=== PATIENT | female | born 1965 | race Hispanic/Latino ===

== ENCOUNTER 2016-08-31 16:55 | Inpatient (IN) | payer BC ==
[2016-08-31 18:26] VITALS: RESP 20
[2016-08-31 18:28] VITALS: BMI 57.3
[2016-08-31] MEDS ORDERED: Oxycodone/Acetaminophen 5/325 mg Tab PO PRN (20:36)
--- NOTE | 2016-08-31 20:40 | CP.PCM.HP ---
History of Present Illness - History of Present Illness History of Present Illness: 50 yo female with history of morbid obesity and low back pain since falling on her back a year ago had decompression and spinal fusion of L4-L5 on 08/26/2016 at [facility] because of herniated disc. Present on Admission - Present on Admission Any Indicators Present on Admission: No History of DVT/PE: No History of Uncontrolled Diabetes: No Urinary Catheter: No Decubitus Ulcer Present: No Review of Systems - Review of Systems All systems: reviewed and no additional remarkable complaints except (aside from those mentioned above, 12 point system review were negative by me) Past Patient History - Infectious Disease Hx of Infectious Diseases: None - Tetanus Immunizations Tetanus Immunization: Unknown - Past Social History Smoking Status: Unknown If Ever Smoked Alcohol: None Drugs: Denies - CARDIAC Hx Cardiac Disorders: No - PULMONARY Hx Respiratory Disorders: No - NEUROLOGICAL Hx Neurological Disorder: No - HEENT Hx HEENT Problems: No - RENAL Hx Chronic Kidney Disease: No - ENDOCRINE/METABOLIC Hx Diabetes Mellitus Type 2: Yes (controlled with diet) - HEMATOLOGICAL/ONCOLOGICAL Hx Blood Disorders: No - INTEGUMENTARY Hx Dermatological Problems: No - MUSCULOSKELETAL/RHEUMATOLOGICAL Hx Back Pain: Yes Hx Herniated Disk: Yes Hx Rheumatoid Arthritis: Yes Other/Comment: sciatica. left leg rediculopathy. morbidly obese - GASTROINTESTINAL Hx Gastrointestinal Disorders: No - GENITOURINARY/GYNECOLOGICAL Hx Genitourinary Disorders: No - PSYCHIATRIC Hx Psychophysiologic Disorder: No Hx Substance Use: No - SURGICAL HISTORY Hx Section: Yes Other/Comment: 08/26/16 L4-L5 laminectomy with fusion - ANESTHESIA Hx Anesthesia: Yes Hx Anesthesia Reactions: No Hx Malignant Hyperthermia: No Has any member of the family had a problem w/ anesthesia?: No Meds Allergies/Adverse Reactions: Allergies Allergy/AdvReac Type Severity Reaction Status Date / Time No Known Allergies Allergy Verified 08/31/16 18:27 Physical Exam - Constitutional Appears: No Acute Distress, Other (morbidly obese) - Head Exam Head Exam: ATRAUMATIC - Eye Exam Eye Exam: absent: Scleral icterus - ENT Exam ENT Exam: Mucous Membranes Moist - Neck Exam Neck exam: Negative for: Meningismus - Respiratory Exam Respiratory Exam: absent: Rhonchi, Wheezes, Respiratory Distress - Cardiovascular Exam Cardiovascular Exam: REGULAR RHYTHM, +S1, +S2 - GI/Abdominal Exam GI & Abdominal Exam: Soft. absent: Tenderness - Rectal Exam Rectal Exam: Deferred - Extremities Exam Extremities exam: Positive for: pedal edema - Back Exam Back exam: absent: tenderness - Neurological Exam Neurological exam: Alert, Oriented x3 - Psychiatric Exam Psychiatric exam: Normal Affect - Skin Skin Exam: Dry, Intact Results - Vital Signs Recent Vital Signs: Last Vital Signs Temp 97.7 F 08/31/16 18:23 Pulse 75 08/31/16 18:23 Resp 20 08/31/16 18:23 BP 176/64 H 08/31/16 18:23 Pulse Ox 99 08/31/16 18:23 Assessment & Plan (1) S/P spinal fusion Status: Acute Comment: admit to TCU. refer for PT and OT. pain management with Percocet 1 tab PO q 4hrs prn. venodyne boots while in bed. Decadron 2mg PO q 6hrs. Neurontin 300mg PO q 12hrs. Valium 5mg PO q 6hrs prn (2) DM2 (diabetes mellitus, type 2) Status: Chronic Comment: ronit RUIZ. HgA1C, BMP in am
[2016-09-01 07:36] LABS: BASO % 0.2 % (0.0-2.0); EOS # 0.2 K/uL (0.0-0.7); LYMPH # 1.4 K/uL (1.0-4.3); LYMPH % 22.5 % (20.0-40.0); MEAN CELL VOLUME 86.1 fl (81.0-99.0); MEAN CORPUSCULAR HEMOGLOBIN 28.2 pg (27.0-31.0); MEAN CORPUSCULAR HGB CONC 32.7 g/dL (33.0-37.0); MONO # 0.3 K/uL (0.0-0.8); MONO % 4.8 % (0.0-10.0); NEUT # 4.2 K/uL (1.8-7.0); NEUT % 69.5 % (50.0-75.0); NRBC % 0.1 % (0.0-0.0)
[2016-09-01 08:01] LABS: BLOOD UREA NITROGEN 14 mg/dl (7-17); CALCIUM 8.3 mg/dL (8.4-10.2); CARBON DIOXIDE 28 mmol/L (22-30); CHLORIDE 106 mmol/L (98-107); GFR AFRICAN-AMERICAN > 60; GLUCOSE,RANDOM 141 mg/dL (65-105); POTASSIUM 3.9 MMOL/L (3.6-5.0); SODIUM 142 mmol/l (132-148)
[2016-09-01] MEDS: Pantoprazole 40 mg EC Tab PO SCH (08:34)
[2016-09-02 07:55] LABS: BASO % 0.1 % (0.0-2.0); EOS # 0.2 K/uL (0.0-0.7); EOS % 2.8 % (0.0-4.0); HEMATOCRIT 27.7 % (34.0-47.0); LYMPH # 2.2 K/uL (1.0-4.3); LYMPH % 26.6 % (20.0-40.0); MEAN CELL VOLUME 85.8 fl (81.0-99.0); MEAN CORPUSCULAR HGB CONC 32.6 g/dL (33.0-37.0); MEAN PLATELET VOLUME 8.8 fl (7.2-11.7); MONO # 0.4 K/uL (0.0-0.8); MONO % 5.3 % (0.0-10.0); NEUT # 5.3 K/uL (1.8-7.0); NEUT % 65.2 % (50.0-75.0); NRBC % 0.1 % (0.0-0.0); WHITE BLOOD COUNT 8.1 K/uL (4.8-10.8)
[2016-09-02 08:23] LABS: ALKALINE PHOSPHATASE 77 U/L (38-126); ALT/SGPT 27 U/L (9-52); AST/SGOT 25 U/L (14-36); BILIRUBIN,TOTAL 0.4 mg/dl (0.2-1.3); BLOOD UREA NITROGEN 13 mg/dl (7-17); CALCIUM 8.3 mg/dL (8.4-10.2); CARBON DIOXIDE 29 mmol/L (22-30); CHLORIDE 105 mmol/L (98-107); GFR AFRICAN-AMERICAN > 60; GLUCOSE,RANDOM 103 mg/dL (65-105); POTASSIUM 3.6 MMOL/L (3.6-5.0); SODIUM 142 mmol/l (132-148); TOTAL PROTEIN 5.5 G/DL (6.3-8.2)
[2016-09-02] MEDS: Pantoprazole 40 mg EC Tab PO SCH (09:23)
[2016-09-02 11:51] LABS: IRON 28 ug/dL (37-170)
--- NOTE | 2016-09-02 16:04 | CP.PCM.PN ---
Subjective - Date & Time of Evaluation Date of Evaluation: 09/02/16 Time of Evaluation: 11:00 - Subjective Subjective: Pt seen and examined. Complained of having diarrhea since yesterday. Able to tolerate PT and OT. Objective - Vital Signs/Intake and Output Vital Signs (last 24 hours): Temp Pulse Resp BP Pulse Ox 97.9 F 74 20 110/55 L 99 09/02/16 08:42 09/02/16 11:43 09/02/16 08:42 09/02/16 11:43 09/02/16 11:43 - Medications Medications: Current Medications Dexamethasone (Decadron) 2 mg PO Q12 [facility] Stop: 09/02/16 21:00 Last Admin: 09/02/16 09:23 Dose: 2 mg Dexamethasone (Decadron) 1 mg PO Q12 [facility] Stop: 09/04/16 09:00 Dexamethasone (Decadron) 1 mg PO ONCE ONE Stop: 09/05/16 11:11 Dexamethasone (Decadron) 1 mg PO ONCE ONE Stop: 09/06/16 11:12 Diazepam (Valium) 5 mg PO Q6 PRN PRN Reason: Muscle spasm Last Admin: 09/02/16 02:17 Dose: 5 mg Gabapentin (Neurontin) 300 mg PO Q12 [facility] Last Admin: 09/02/16 09:23 Dose: 300 mg Hydromorphone HCl (Dilaudid) 2 mg PO Q3H PRN PRN Reason: Pain, severe (8-10) Last Admin: 09/02/16 13:20 Dose: 2 mg Oxycodone/Acetaminophen (Percocet 5/325 Mg Tab) 1 tab PO Q4 PRN PRN Reason: Pain, severe (8-10) Stop: 09/03/16 20:37 Last Admin: 08/31/16 20:54 Dose: 1 tab Pantoprazole Sodium (Protonix Ec Tab) 40 mg PO DAILY [facility] Last Admin: 09/02/16 09:23 Dose: 40 mg Simethicone (Mylicon Chew Tab) 80 mg PO TID PRN PRN Reason: Flatulence - Labs Labs: 09/02/16 07:00 09/02/16 07:00 - Constitutional Appears: No Acute Distress, Other (morbidly obese) - Head Exam Head Exam: ATRAUMATIC - Eye Exam Eye Exam: absent: Scleral icterus - ENT Exam ENT Exam: Mucous Membranes Moist - Neck Exam Neck Exam: absent: Meningismus - Respiratory Exam Respiratory Exam: absent: Rhonchi, Wheezes, Respiratory Distress - Cardiovascular Exam Cardiovascular Exam: REGULAR RHYTHM, +S1, +S2 - GI/Abdominal Exam GI & Abdominal Exam: Soft. absent: Tenderness - Rectal Exam Rectal Exam: Deferred - Extremities Exam Extremities Exam: Pedal Edema - Neurological Exam Neurological Exam: Alert, Oriented x3 - Psychiatric Exam Psychiatric exam: Normal Affect - Skin Skin Exam: Dry, Intact Assessment and Plan (1) S/P spinal fusion Status: Acute (2) DM2 (diabetes mellitus, type 2) Status: Chronic - Assessment and Plan (Free Text) Assessment: 50 yo female with history of morbid obesity and low back pain s/p decompression and spinal fusion of L4-L5 transferred to TCU for OT and PT. (1) S/P spinal fusion and decompression continue PT and OT. pain manageable with Percocet . continue Decadron 2mg PO q 6hrs, Neurontin 300mg PO q 12hrs and Valium 5mg PO q 6hrs prn venodyne boots while in bed. (2) DM2 (diabetes mellitus, type 2) BS controlled without medication continue diabetic diet HgA1C: 6 (3) Diarrhea probably drug related also complained of increased gas formation and abdominal pain DC Colace Mylicon 80mg PO TID prn
[2016-09-02 17:09] LABS: FOLATE > 20.0 ng/mL
[2016-09-03] MEDS: Simethicone 80 mg Chewtab PO PRN ×2 (08:27→13:39)
[2016-09-03] MEDS: Pantoprazole 40 mg EC Tab PO SCH (08:27)
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
[2016-09-04] MEDS: Pantoprazole 40 mg EC Tab PO SCH (09:00)
[2016-09-04] MEDS: Simethicone 80 mg Chewtab PO PRN (09:00)
[2016-09-05] MEDS: Pantoprazole 40 mg EC Tab PO SCH (09:36)
[2016-09-05] MEDS ORDERED: Atropine-Diphenoxylate 0.025-2.5 mg Tab PO ONE (11:02)
[2016-09-05] MEDS: Sodium Chloride 0.9% 1,000 ML IV SCH ×2 (11:32→21:14)
[2016-09-05 13:11] LABS: HEMATOCRIT 28.7 % (34.0-47.0); MEAN CELL VOLUME 85.2 fl (81.0-99.0); MEAN CORPUSCULAR HEMOGLOBIN 27.5 pg (27.0-31.0); MEAN CORPUSCULAR HGB CONC 32.2 g/dL (33.0-37.0); RED CELL DISTRIBUTION WIDTH 15.8 % (11.5-14.5); WHITE BLOOD COUNT 8.4 K/uL (4.8-10.8)
[2016-09-05 13:46] LABS: BLOOD UREA NITROGEN 10 mg/dl (7-17); CALCIUM 8.4 mg/dL (8.4-10.2); CARBON DIOXIDE 27 mmol/L (22-30); CHLORIDE 104 mmol/L (98-107); GFR AFRICAN-AMERICAN > 60; GLUCOSE,RANDOM 105 mg/dL (65-105); SODIUM 141 mmol/l (132-148)
[2016-09-06] MEDS: Simethicone 80 mg Chewtab PO PRN ×2 (03:41→09:00)
[2016-09-06] MEDS: Sodium Chloride 0.9% 1,000 ML IV SCH (06:32)
[2016-09-06] MEDS: Pantoprazole 40 mg EC Tab PO SCH (08:23)
[2016-09-07] MEDS: Pantoprazole 40 mg EC Tab PO SCH (08:36)
[2016-09-07] MEDS: Simethicone 80 mg Chewtab PO PRN (08:38)
--- NOTE | 2016-09-07 19:07 | CP.PCM.PN ---
Subjective - Date & Time of Evaluation Date of Evaluation: 09/07/16 Time of Evaluation: 18:55 - Subjective Subjective: Pt seen and examined. Appeared tired and sleepy. She claimed she got tired from the therapy. Objective - Vital Signs/Intake and Output Vital Signs (last 24 hours): Temp Pulse Resp BP Pulse Ox 97.7 F 81 20 140/72 100 09/07/16 16:14 09/07/16 16:14 09/07/16 16:14 09/07/16 16:14 09/07/16 16:14 - Medications Medications: Current Medications Diazepam (Valium) 5 mg PO Q6 PRN PRN Reason: Muscle spasm Last Admin: 09/07/16 18:12 Dose: 5 mg Gabapentin (Neurontin) 300 mg PO Q12 [facility] Last Admin: 09/07/16 08:37 Dose: 300 mg Hydromorphone HCl (Dilaudid) 2 mg PO Q3H PRN PRN Reason: Pain, severe (8-10) Last Admin: 09/07/16 09:47 Dose: 2 mg Loperamide HCl (Imodium) 4 mg PO QID PRN PRN Reason: Diarrhea Last Admin: 09/05/16 17:13 Dose: 4 mg Ondansetron HCl (Zofran Tab) 4 mg PO Q6 PRN PRN Reason: Nausea/Vomiting Last Admin: 09/03/16 17:10 Dose: 4 mg Pantoprazole Sodium (Protonix Ec Tab) 40 mg PO DAILY [facility] Last Admin: 09/07/16 08:36 Dose: 40 mg Simethicone (Mylicon Chew Tab) 80 mg PO TID PRN PRN Reason: Flatulence Last Admin: 09/07/16 08:38 Dose: 80 mg - Labs Labs: 09/05/16 12:30 09/05/16 12:30 - Constitutional Appears: No Acute Distress - Head Exam Head Exam: ATRAUMATIC - Eye Exam Eye Exam: PERRL - ENT Exam ENT Exam: Mucous Membranes Moist - Neck Exam Neck Exam: absent: Meningismus - Respiratory Exam Respiratory Exam: absent: Rhonchi, Wheezes - Cardiovascular Exam Cardiovascular Exam: REGULAR RHYTHM, +S1, +S2 - GI/Abdominal Exam GI & Abdominal Exam: Soft. absent: Tenderness - Rectal Exam Rectal Exam: Deferred - Neurological Exam Neurological Exam: Alert, Oriented x3 - Skin Skin Exam: Dry, Intact Assessment and Plan (1) S/P spinal fusion Status: Acute (2) DM2 (diabetes mellitus, type 2) Status: Chronic - Assessment and Plan (Free Text) Assessment: 50 yo female with history of morbid obesity and low back pain s/p decompression and spinal fusion of L4-L5 transferred to TCU for therapy. (1) S/P spinal fusion and decompression tolerated PT and OT pain manageable with Percocet . Neurontin 300mg PO q 12hrs Valium 5mg PO q 6hrs prn venodyne boots while in bed. (2) DM2 (diabetes mellitus, type 2) BS controlled without medication continue diabetic diet HgA1C: 6 (3) Diarrhea resolved
[2016-09-08] MEDS: Pantoprazole 40 mg EC Tab PO SCH (08:56)
[2016-09-09] MEDS: Simethicone 80 mg Chewtab PO PRN (09:45)
[2016-09-09] MEDS: Pantoprazole 40 mg EC Tab PO SCH (09:46)
--- NOTE | 2016-09-09 11:47 | CP.PCM.PN ---
Subjective - Date & Time of Evaluation Date of Evaluation: 09/09/16 Time of Evaluation: 11:00 - Subjective Subjective: Pt seen and examined. Claimed she no longer have diarrhea but now has no BM for 3 days. Also complained of headache and increased abdominal gas. Objective - Vital Signs/Intake and Output Vital Signs (last 24 hours): Temp Pulse Resp BP Pulse Ox 98.2 F 70 20 108/57 L 99 09/09/16 09:00 09/09/16 09:00 09/09/16 09:00 09/09/16 09:00 09/09/16 09:00 - Medications Medications: Current Medications Acetaminophen (Tylenol 325mg Tab) 650 mg PO Q6 PRN PRN Reason: Headache Last Admin: 09/09/16 04:29 Dose: 650 mg Diazepam (Valium) 5 mg PO Q6 PRN PRN Reason: Muscle spasm Last Admin: 09/09/16 09:46 Dose: 5 mg Gabapentin (Neurontin) 300 mg PO Q12 [facility] Last Admin: 09/09/16 09:45 Dose: 300 mg Hydromorphone HCl (Dilaudid) 2 mg PO Q3H PRN PRN Reason: Pain, severe (8-10) Last Admin: 09/09/16 01:55 Dose: 2 mg Loperamide HCl (Imodium) 4 mg PO QID PRN PRN Reason: Diarrhea Last Admin: 09/05/16 17:13 Dose: 4 mg Ondansetron HCl (Zofran Tab) 4 mg PO Q6 PRN PRN Reason: Nausea/Vomiting Last Admin: 09/03/16 17:10 Dose: 4 mg Pantoprazole Sodium (Protonix Ec Tab) 40 mg PO DAILY [facility] Last Admin: 09/09/16 09:46 Dose: 40 mg Simethicone (Mylicon Chew Tab) 80 mg PO TID PRN PRN Reason: Flatulence Last Admin: 09/09/16 09:45 Dose: 80 mg - Labs Labs: 09/05/16 12:30 09/05/16 12:30 - Constitutional Appears: No Acute Distress - Head Exam Head Exam: ATRAUMATIC - Eye Exam Eye Exam: absent: Scleral icterus - ENT Exam ENT Exam: Mucous Membranes Moist - Neck Exam Neck Exam: absent: Meningismus - Respiratory Exam Respiratory Exam: absent: Rhonchi, Wheezes, Respiratory Distress - Cardiovascular Exam Cardiovascular Exam: REGULAR RHYTHM, +S1, +S2 - GI/Abdominal Exam GI & Abdominal Exam: Soft. absent: Tenderness - Rectal Exam Rectal Exam: Deferred - Neurological Exam Neurological Exam: Alert, Oriented x3 - Psychiatric Exam Psychiatric exam: Normal Affect - Skin Skin Exam: Dry, Intact Assessment and Plan (1) S/P spinal fusion Status: Acute (2) DM2 (diabetes mellitus, type 2) Status: Chronic - Assessment and Plan (Free Text) Assessment: 50 yo female with history of morbid obesity and low back pain s/p decompression and spinal fusion of L4-L5 transferred to TCU for therapy. (1) S/P spinal fusion and decompression doing well with PT and OT continue Percocet q 4hrs prn for pain Neurontin 300mg PO q 12hrs Valium 5mg PO q 6hrs prn venodyne boots while in bed. (2) DM2 (diabetes mellitus, type 2) BS relatively controlled without medication on diabetic diet HgA1C: 6 (3) Diarrhea resolved but now has no BM for 3 days
[2016-09-09] MEDS ORDERED: Alum-Mag Hydrox-Simethicone Susp (30 mL) PO PRN (11:54)
[2016-09-10] MEDS: Pantoprazole 40 mg EC Tab PO SCH (09:11)
--- NOTE | 2016-09-10 12:02 | CP.PCM.PN ---
Subjective - Date & Time of Evaluation Date of Evaluation: 09/10/16 Time of Evaluation: 12:00 - Subjective Subjective: Hospitalist Update Note Patient requires the followin). Home RN for medication administration and pain management 2). Home PT for gait training Cheng England D.O. Objective - Vital Signs/Intake and Output Vital Signs (last 24 hours): Temp Pulse Resp BP Pulse Ox 97.0 F L 71 20 120/70 99 09/10/16 08:31 09/10/16 08:31 09/10/16 08:31 09/10/16 08:31 09/10/16 08:31 - Medications Medications: Current Medications Acetaminophen (Tylenol 325mg Tab) 650 mg PO Q6 PRN PRN Reason: Headache Last Admin: 09/10/16 04:54 Dose: 650 mg Al Hydrox/Mg Hydrox/Simethicone (Maalox Plus 30 Ml) 30 ml PO Q6 PRN PRN Reason: Indigestion / Heartburn Diazepam (Valium) 5 mg PO Q6 PRN PRN Reason: Muscle spasm Last Admin: 09/09/16 21:12 Dose: 5 mg Gabapentin (Neurontin) 300 mg PO Q12 [facility] Last Admin: 09/10/16 09:12 Dose: 300 mg Hydromorphone HCl (Dilaudid) 2 mg PO Q3H PRN PRN Reason: Pain, severe (8-10) Last Admin: 09/09/16 20:01 Dose: 2 mg Loperamide HCl (Imodium) 4 mg PO QID PRN PRN Reason: Diarrhea Last Admin: 09/05/16 17:13 Dose: 4 mg Ondansetron HCl (Zofran Tab) 4 mg PO Q6 PRN PRN Reason: Nausea/Vomiting Last Admin: 09/03/16 17:10 Dose: 4 mg Pantoprazole Sodium (Protonix Ec Tab) 40 mg PO DAILY [facility] Last Admin: 09/10/16 09:11 Dose: 40 mg - Labs Labs: 09/05/16 12:30 09/05/16 12:30
--- NOTE | 2016-09-10 18:12 | CP.PCM.PN ---
Subjective - Date & Time of Evaluation Date of Evaluation: 09/10/16 Time of Evaluation: 18:11 - Subjective Subjective: Patient seen in room doing ok pain is fairly well tolerated had a more formed BM set for d/c home tomorrow follow up with surgeons first week in September Objective - Vital Signs/Intake and Output Vital Signs (last 24 hours): Temp Pulse Resp BP Pulse Ox 97.5 F L 77 20 112/58 L 100 09/10/16 15:51 09/10/16 15:51 09/10/16 15:51 09/10/16 15:51 09/10/16 15:51 - Medications Medications: Current Medications Acetaminophen (Tylenol 325mg Tab) 650 mg PO Q6 PRN PRN Reason: Headache Last Admin: 09/10/16 04:54 Dose: 650 mg Al Hydrox/Mg Hydrox/Simethicone (Maalox Plus 30 Ml) 30 ml PO Q6 PRN PRN Reason: Indigestion / Heartburn Last Admin: 09/10/16 17:43 Dose: 30 ml Diazepam (Valium) 5 mg PO Q6 PRN PRN Reason: Muscle spasm Last Admin: 09/09/16 21:12 Dose: 5 mg Gabapentin (Neurontin) 300 mg PO Q12 [facility] Last Admin: 09/10/16 09:12 Dose: 300 mg Hydromorphone HCl (Dilaudid) 2 mg PO Q3H PRN PRN Reason: Pain, severe (8-10) Last Admin: 09/10/16 17:43 Dose: 2 mg Loperamide HCl (Imodium) 4 mg PO QID PRN PRN Reason: Diarrhea Last Admin: 09/05/16 17:13 Dose: 4 mg Ondansetron HCl (Zofran Tab) 4 mg PO Q6 PRN PRN Reason: Nausea/Vomiting Last Admin: 09/03/16 17:10 Dose: 4 mg Pantoprazole Sodium (Protonix Ec Tab) 40 mg PO DAILY [facility] Last Admin: 09/10/16 09:11 Dose: 40 mg - Labs Labs: 09/05/16 12:30 09/05/16 12:30
[2016-09-10 21:36] VITALS: TEMP 97.7; O2SAT 97
[2016-09-11 08:47] VITALS: BP 117/63; PULSE 72
[2016-09-11] MEDS: Pantoprazole 40 mg EC Tab PO SCH (09:41)
--- NOTE | 2016-09-11 16:05 | CP.PCM.DIS ---
Provider - Provider Date of Admission: 08/31/16 18:38 Attending physician: Brice Mary MD Primary care physician: Silvana Linda MD Time Spent in preparation of Discharge (in minutes): 40 Hospital Course - Lab Results Lab Results: Most Recent Lab Values WBC 8.4 K/uL (4.8-10.8) 09/05/16 12:30 RBC 3.37 Mil/uL (3.80-5.20) L 09/05/16 12:30 Hgb 9.2 g/dL (12.0-16.0) L 09/05/16 12:30 Hct 28.7 % (34.0-47.0) L 09/05/16 12:30 MCV 85.2 fl (81.0-99.0) 09/05/16 12:30 MCH 27.5 pg (27.0-31.0) 09/05/16 12:30 MCHC 32.2 g/dL (33.0-37.0) L 09/05/16 12:30 RDW 15.8 % (11.5-14.5) H 09/05/16 12:30 Plt Count 258 K/uL (130-400) 09/05/16 12:30 MPV 8.8 fl (7.2-11.7) 09/02/16 07:00 Neut % (Auto) 65.2 % (50.0-75.0) 09/02/16 07:00 Lymph % (Auto) 26.6 % (20.0-40.0) 09/02/16 07:00 Addison % (Auto) 5.3 % (0.0-10.0) 09/02/16 07:00 Eos % (Auto) 2.8 % (0.0-4.0) 09/02/16 07:00 Baso % (Auto) 0.1 % (0.0-2.0) 09/02/16 07:00 Neut # 5.3 K/uL (1.8-7.0) 09/02/16 07:00 Lymph # 2.2 K/uL (1.0-4.3) 09/02/16 07:00 Addison # 0.4 K/uL (0.0-0.8) 09/02/16 07:00 Eos # 0.2 K/uL (0.0-0.7) 09/02/16 07:00 Baso # 0.0 K/uL (0.0-0.2) 09/02/16 07:00 Retic Count 3.3 % (0.5-1.5) H 09/02/16 10:32 Sodium 141 mmol/l (132-148) 09/05/16 12:30 Potassium 4.0 MMOL/L (3.6-5.0) 09/05/16 12:30 Chloride 104 mmol/L (98-107) 09/05/16 12:30 Carbon Dioxide 27 mmol/L (22-30) 09/05/16 12:30 Anion Gap 14 (10-20) 09/05/16 12:30 BUN 10 mg/dl (7-17) 09/05/16 12:30 Creatinine 0.8 mg/dL (0.7-1.2) 09/05/16 12:30 Est GFR ( Amer) > 60 09/05/16 12:30 Est GFR (Non-Af Amer) > 60 09/05/16 12:30 POC Glucose (mg/dL) 111 mg/dL (65-110) H 09/11/16 11:07 Random Glucose 105 mg/dL (65-105) 09/05/16 12:30 Hemoglobin A1c 6.0 % (4.2-6.5) 09/01/16 07:05 Calcium 8.4 mg/dL (8.4-10.2) 09/05/16 12:30 Iron 28 ug/dL (37-170) L 09/02/16 11:23 TIBC 286 ug/dL (250-450) 09/02/16 11:23 % Saturation 10 % (20-55) L 09/02/16 11:23 Ferritin 16.0 ng/mL 09/02/16 10:32 Total Bilirubin 0.4 mg/dl (0.2-1.3) 09/02/16 07:00 AST 25 U/L (14-36) 09/02/16 07:00 ALT 27 U/L (9-52) 09/02/16 07:00 Alkaline Phosphatase 77 U/L (38-126) 09/02/16 07:00 Total Protein 5.5 G/DL (6.3-8.2) L 09/02/16 07:00 Albumin 2.7 g/dL (3.5-5.0) L 09/02/16 07:00 Globulin 2.8 gm/dL (2.2-3.9) 09/02/16 07:00 Albumin/Globulin Ratio 1.0 (1.0-2.1) 09/02/16 07:00 Vitamin B12 495 pg/mL (239-931) 09/02/16 10:32 Folate > 20.0 ng/mL 09/02/16 10:32 C. difficile Ag & Toxin Negative (NEGATIVE) 09/02/16 11:11 - Hospital Course Hospital Course: 50 yo female with history of morbid obesity and low back pain since falling on her back a year ago had decompression and spinal fusion of L4-L5 on 08/26/2016 at [facility] because of herniated disc. She was then transferred to [facility] TCU for PT/OT on 08/31/16. Upon FULL ROS There is NO chest pain, NO palpitations, NO SOB/Cough/Wheezing, NO Abdominal Pain, NO n/v/d/c, NO black/bloody stools (had two soft bowel movements today, NO burning/pain with urination, NO new changes in vision, NO new changes in hearing, NO paresthesias, NO ROWELL, (+) Pain at low back is 5/10 at the moment and worsened by sitting for long period of time EXAM: HEENT: NCA, EOMI, PERRLA, NO cervical lymphadenopathy, NO thyromegaly, NO pharyngeal erythema/exudate, Oral Mucosa and Nasal Turbinates are moist Cardio: NS1 and NS2, NO M/R/G Respiratory: CTA B/L, NO R/R/W GI: BSx4, Soft, NT, Central Obesity (Liver and Spleen could not be palpated), NO guarding/rebound tenderness Ext: Pulses are strong and equal, Capillary Refill is 2 seconds, NO edema ( patient stated that she had edema but I did not appreciate on my exam in her legs or arms Neuro: CN II throug XII are grossly intact Skin: Surgical Site with omar at the Lumbar Site shows NO dehiscence and NO evidence of cellulitis Patient stated that she is not on any medications for her DM 2: her blood glucose have been under control while she has been here at [facility]. She will follow up with her PMD this coming week. Patient stated that she was on Escitalopram for Anxiety/Depression but has not been on this since before her surgery: She will follow up with her PMD this coming week. Patient is for discharge to home. The following instructions were explained to patient: 1). Follow up with your Primary Care Physician Dr. Nati Mackenzie this coming week before Tuesday. 2). Follow up with Neurosurgeon Dr. Long on 09/20/16 at 1:30 PM. 3). Follow up with Dr. Jose Alfredo Barraza 09/21/16 at 3:00 PM 4). The follow prescriptions were provided to you. All refills must be obtained through your Primary Care Physician: Gabapentin 300 mg 1 tablet by mouth every 12 hours, #14, NO refills Dilaudid 2 mg 1 tablet by mouth ONLY NEEDED every 6 hours for moderate to severe pain, #28, NO refills 5). Take the following over the counter medications: Colace 100 mg 1 tablet by mouth 2x a day while you are taking the pain medication Prilosec 20 mg 1 tablet by mouth 1x a day for your history of Acid Reflux Tylenol 500 mg 1 tablet every 6 hours as needed for headache Gas X 1 tablet every 6 hours as needed for gas pain 6). [facility] Home Visiting Nurse to come evaluate you at your home tomorrow 09/12/16 Cheng England D.O. Discharge Exam - Head Exam Head Exam: ATRAUMATIC Discharge Plan - Follow Up Plan Condition: GOOD Disposition: HOME/ ROUTINE
== END 2016-09-11 17:01 | disposition home or self-care (01) | DRG 552 ==
LOC: H.TCU 18:38
PROC: F08Z4FZ Home Management Treatment using Assistive, Adaptive, Supportive or Protective Equipment (ICD-10-PCS; principal; 2016-09-03)
PROC: F07Z9FZ Gait Training/Functional Ambulation Treatment using Assistive, Adaptive, Supportive or Protective Equipment (ICD-10-PCS; 2016-09-03)
PROC: F07L6ZZ Therapeutic Exercise Treatment of Musculoskeletal System - Lower Back / Lower Extremity (ICD-10-PCS; 2016-09-03)
DX: M48.06 Spinal stenosis, lumbar region (principal); Z68.43 Body mass index [BMI] 50.0-59.9, adult; E66.01 Morbid (severe) obesity due to excess calories; Z71.3 Dietary counseling and surveillance; M06.9 Rheumatoid arthritis, unspecified; E11.9 Type 2 diabetes mellitus without complications; F41.9 Anxiety disorder, unspecified; M21.371 Foot drop, right foot; R32 Unspecified urinary incontinence; F32.9 Major depressive disorder, single episode, unspecified; Z98.1 Arthrodesis status

== ENCOUNTER 2016-09-11 21:16 | Inpatient (IN) | payer BC ==
[2016-09-11 21:16] VITALS: BMI 57.3
--- NOTE | 2016-09-11 21:57 | ED PDOC ---
HPI: Back Time Seen by Provider: 09/11/16 21:21 Chief Complaint (Nursing): Back Pain Chief Complaint (Provider): Back Pain History Per: Patient Additional Complaint(s): Pt. states she was discharged from TCU today. She had spinal fusion surgery L4/ L5 in [facility] (formerly [facility]3] done by Dr. Barraza without complications. Pt. states she was discharged from the hospital at 1730 today. Pt. states she was suppose to have her Kerry-[employer]air delivered today which never arrived and she also was unable to get her prescribed pain medications (dilaudid and neurontin) therefore she developed pain in her lower back as she continued to sit down for a long period of time. Also reports having b/l lower extremity pain and swelling since she got home from the hospital. Denies trauma, fever, incontinence, SOB, chest pain. Past Medical History Reviewed: Historical Data, Nursing Documentation, Vital Signs Vital Signs: Last Vital Signs Temp 98 F 09/11/16 21:18 Pulse 80 09/11/16 21:18 Resp 20 09/11/16 21:18 BP 134/86 09/11/16 21:18 Pulse Ox 100 09/11/16 21:18 - Medical History PMH: Cardia Arrhythmia, Diabetes, Rheumatoid Arthritis Denies: Chronic Kidney Disease - Surgical History Other surgeries: L4/L5 laminectomy - Family History Family History: States: No Known Family Hx - Home Medications Home Medications: Ambulatory Orders Medication Instructions Recorded No Known Home Med 09/12/16 - Allergies Allergies/Adverse Reactions: Allergies Allergy/AdvReac Type Severity Reaction Status Date / Time No Known Allergies Allergy Verified 08/31/16 18:27 Review of Systems ROS Statement: Except As Marked, All Systems Reviewed And Found Negative Musculoskeletal: Positive for: Leg Pain (b/l) Physical Exam - Reviewed Nursing Documentation Reviewed: Yes Vital Signs Reviewed: Yes - Physical Exam Appears: Positive for: Well, Non-toxic, No Acute Distress Head Exam: Positive for: ATRAUMATIC, NORMAL INSPECTION, NORMOCEPHALIC Skin: Positive for: Normal Color, Warm. Negative for: Rash Eye Exam: Positive for: EOMI, Normal appearance, PERRL ENT: Positive for: Normal ENT Inspection Neck: Positive for: Normal, Painless ROM Cardiovascular/Chest: Positive for: Regular Rate, Rhythm Respiratory: Positive for: CNT, Normal Breath Sounds Gastrointestinal/Abdominal: Positive for: Normal Exam, Bowel Sounds, Soft. Negative for: Tenderness Back: Positive for: Normal Inspection, Other (omar in place on lumbar area without surrounding erythema, discharge, or dehisence). Negative for: L CVA Tenderness, R CVA Tenderness, Vertebral Tenderness Extremity: Positive for: Normal ROM, Calf Tenderness (b/l without swelling) Neurologic/Psych: Positive for: Alert, Oriented - Laboratory Results Result Diagrams: 09/11/16 21:55 09/11/16 21:55 - ECG O2 Sat by Pulse Oximetry: 100 - Radiology X-Ray: Interpreted by Me (CXR) X-Ray Interpretation: No Acute Disease - Progress ED Course And Treament: Labs ordered. Dilaudid 1mg IV, valium 5mg PO given. Duplex ordered. Duplex b/l lower extremity: 1. RLE: Incomplete compressibility of mid superficial femoral vein. Flow on color or spectral Doppler imaging. Lack of compressibility of distal superficial femoral, popliteal veins. No significant flow on color or spectral Doppler imaging. Posterior tibial vein not visualized. 2. LLE: Lack of compressibility of popliteal vein. No significant flow on color or spectral Doppler imaging. CXR, EKG ordered. Lovenox 160mg SC given. Pt. placed on monitor. Case d/w Dr. Wolfe and arrangements made for admission. Disposition - Clinical Impression Clinical Impression: Deep vein thrombosis (DVT) - Patient ED Disposition Is Patient to be Admitted: No - Disposition Disposition Time: 22:40 Condition: STABLE
[2016-09-11 22:26] LABS: BASO # 0.1 K/uL (0.0-0.2); BASO % 1.2 % (0.0-2.0); EOS # 0.1 K/uL (0.0-0.7); EOS % 2.4 % (0.0-4.0); HEMATOCRIT 27.1 % (34.0-47.0); LYMPH # 1.4 K/uL (1.0-4.3); LYMPH % 22.4 % (20.0-40.0); MEAN CELL VOLUME 84.7 fl (81.0-99.0); MEAN CORPUSCULAR HEMOGLOBIN 26.5 pg (27.0-31.0); MEAN CORPUSCULAR HGB CONC 31.3 g/dL (33.0-37.0); MEAN PLATELET VOLUME 8.7 fl (7.2-11.7); MONO # 0.3 K/uL (0.0-0.8); MONO % 4.9 % (0.0-10.0); NEUT # 4.2 K/uL (1.8-7.0); NEUT % 69.1 % (50.0-75.0); RED CELL DISTRIBUTION WIDTH 16.2 % (11.5-14.5); WHITE BLOOD COUNT 6.1 K/uL (4.8-10.8)
[2016-09-11 22:35] LABS: ALB/GLOB RATIO 0.9 (1.0-2.1); ALKALINE PHOSPHATASE 111 U/L (38-126); ALT/SGPT 24 U/L (9-52); AST/SGOT 27 U/L (14-36); BILIRUBIN,TOTAL 0.3 mg/dl (0.2-1.3); BLOOD UREA NITROGEN 11 mg/dl (7-17); CALCIUM 8.3 mg/dL (8.4-10.2); CARBON DIOXIDE 28 mmol/L (22-30); CHLORIDE 106 mmol/L (98-107); GFR AFRICAN-AMERICAN > 60; GLUCOSE,RANDOM 131 mg/dL (65-105); POTASSIUM 3.9 MMOL/L (3.6-5.0); SODIUM 144 mmol/l (132-148)
[2016-09-11] MEDS ORDERED: Enoxaparin 100 mg Syringe SC STA (22:51)
[2016-09-12 00:36] LABS: RBC URINE 37 /hpf (0-3); URINE BACTERIA MOD (<OCC); URINE BILIRUBIN NEGATIVE (NEGATIVE); URINE BLOOD NEGATIVE (NEGATIVE); URINE CALCIUM OXALATE CRYSTALS OCC /hpf (<OCC); URINE COLOR YELLOW (YELLOW); URINE GLUCOSE (UA) NEG (Normal); URINE KETONE NEGATIVE (NEGATIVE); URINE LEUKOCYTE ESTERASE TRACE Leu/uL (Negative); URINE PROTEIN 30 mg/dL (NEGATIVE); URINE UROBILINOGEN 0.2-1.0 mg/dL (0.2-1.0); WBC URINE 13 /hpf (0-5)
[2016-09-12] MEDS: Enoxaparin 60 mg Syringe SC SCH ×2 (08:20→20:32)
[2016-09-12] MEDS: Enoxaparin 100 mg Syringe SC SCH ×2 (08:21→20:31)
--- NOTE | 2016-09-12 10:34 | RAD ---
HISTORY: DVT COMPARISON: No prior. FINDINGS: LUNGS: Please note this film has been wrongly marked. The lungs are clear. PLEURA: No significant pleural effusion identified, no pneumothorax apparent. CARDIOVASCULAR: Normal. OSSEOUS STRUCTURES: No significant abnormalities. VISUALIZED UPPER ABDOMEN: Normal. OTHER FINDINGS: There is elevation of the right hemidiaphragm. IMPRESSION: No acute findings.
--- NOTE | 2016-09-12 11:05 | HP ---
CHIEF COMPLAINT: Back pain. HISTORY OF PRESENT ILLNESS: This is a 50-year-old morbidly obese female who recently had spinal fusi on surgery for L4 and L5, who was in transitional care unit and was discharged home, but needed equip ment was not delivered and also patient was not able to get medication and patient started having trupti k pain, so patient was brought to Emergency Room. During workup, patient was found to have DVT and w as admitted for further management. REVIEW OF SYSTEMS: Positive for back pain and headache. Otherwise is negative for loss of conscious ness, chest pain, shortness of breath, nausea, vomiting, diarrhea, constipation, any new joint or ext remity pain. All other organ systems unremarkable except back pain. PAST MEDICAL HISTORY: Significant for morbid obesity, diabetes, rheumatoid arthritis, cardiac arrhyt hmia. PAST SURGICAL HISTORY: Positive for recent fusion surgery for L4-L5. PERSONAL HISTORY: The patient is currently a nonsmoker, nondrinker, no substance abuse. MEDICATIONS: The patient was supposed to be on Dilaudid and pain medications, but was not taking as they were not able to get it. ALLERGIES: The patient is not allergic to any medication. FAMILY HISTORY: Noncontributory. PHYSICAL EXAMINATION: GENERAL: Well-built, well-nourished, morbidly obese, 50-year-old female, in no acute distress. VITAL SIGNS: Temperature 98.4, pulse 77, respirations 20, blood pressure 104/66. HEENT: Pupils reacting to light. No JVD, no thyromegaly, no lymphadenopathy, no nystagmus. Normoce phalic, atraumatic skull. HEART: S1, S2 normal, regular. No significant murmur, gallop or rub is heard. LUNGS: Shows good bilateral air exchange. No rales or rhonchi. ABDOMEN: Soft, nontender, no organomegaly, no fluid. Bowel sounds are plus. EXTREMITIES: No calf swelling, no tenderness, no acute ischemia. CENTRAL NERVOUS SYSTEM: The patient is alert, awake, oriented x 3. There is no sign of any acute gr oss focal, motor or sensory neurological deficit. SKIN: The patient is status post recent back surgery. Surgical site is clean without any sign of co mplication. ADMITTING IMPRESSION: Deep venous thrombosis, back pain, morbid obesity, diabetes, rheumatoid arthri tis, cardiac arrhythmia. DIAGNOSTIC DATA: Telemetry monitoring does not reveal significant arrhythmia. WBC 6.1, hemoglobin 8 .5, hematocrit 27.1, platelet 239. Sodium 144, potassium 3.9, chloride 106, bicarbonate , BUN _ ____, creatinine 0.8. SMA-12 is unremarkable. Telemetry monitoring does not reveal significant arrh ythmia. Chest x-ray is clear. Lower extremity Doppler study was reported positive for deep venous t hrombosis. PLAN: As ordered. Case and plan discussed with patient. Renzo Wolfe MD cc: [id number] TT: 09/12/2016 11:04:40 en
--- NOTE | 2016-09-12 12:06 | US ---
PROCEDURE: Bilateral lower extremity venous duplex Doppler. HISTORY: Pain COMPARISON: None available. TECHNIQUE: Bilateral common femoral, superficial femoral, popliteal and posterior tibial veins were evaluated. Flow was assessed with color Doppler, compressibility, assessment of phasic flow and augmentation response. FINDINGS: COMMON FEMORAL VEIN: Right CFV: Unremarkable. Left CFV: Unremarkable. SUPERFICIAL FEMORAL VEIN: Right SFV: There is a nearly occlusive thrombus in the mid and distal vein. Left SFV: Unremarkable. POPLITEAL VEIN: Right Popliteal: There is a nearly occlusive thrombus. Left Popliteal: There is nearly occlusive thrombus in the distal popliteal vein. POSTERIOR TIBIAL VEIN: Right PTV: Not visualized. Left PTV: Unremarkable. OTHER FINDINGS: There is a 4.6 x 2.2 cm right popliteal cyst. IMPRESSION: 1. Nearly occlusive thrombus in the mid and distal right superficial femoral vein and right popliteal vein. 2. Nearly occlusive thrombus in the distal left popliteal vein.
[2016-09-12 13:16] LABS: THYROID STIMULATING HORMONE 0.7 mIU/ML (0.46-4.68)
[2016-09-12 14:06] LABS: IRON 13 ug/dL (37-170)
[2016-09-13 07:39] LABS: ALB/GLOB RATIO 0.9 (1.0-2.1); ALKALINE PHOSPHATASE 106 U/L (38-126); ALT/SGPT 25 U/L (9-52); AST/SGOT 20 U/L (14-36); BILIRUBIN,TOTAL 0.4 mg/dl (0.2-1.3); BLOOD UREA NITROGEN 9 mg/dl (7-17); CALCIUM 8.2 mg/dL (8.4-10.2); CARBON DIOXIDE 24 mmol/L (22-30); CHLORIDE 108 mmol/L (98-107); GFR AFRICAN-AMERICAN > 60; GLUCOSE,RANDOM 111 mg/dL (65-105); SODIUM 143 mmol/l (132-148); TOTAL PROTEIN 5.5 G/DL (6.3-8.2)
--- NOTE | 2016-09-13 08:36 | PQF DM ---
This form is a permanent part of the medical record 09/13/16 Dr. Wolfe, Please clarify the TYPE of Diabetes. Clarification of your documentation is requested to better reflect the severity of illness and intensity of treatment of your patient. Indicators present: [x] Documented diagnosis of Diabetes [] Documented condition [] A1C results [] Diabetic medications [x] Elevated blood glucose :Glucose levels: 111, 131 [] Nutritional consults [] ADA diet [] Other: [] Location in the medical record that reflects the above clinical findings:[] Treatment Provided: PHYSICIAN'S RESPONSE Based on your medical judgment of the clinical indicators outlined above, are you treating this patient for a known or suspected: [ ] Diabetes Mellitus, Type I [ ] Controlled [ ] Uncontrolled [ ] Diabetes Mellitus, Type II [ ] Controlled [ ] Uncontrolled [ ] Diabetes, Steroid induced [ ] Controlled [ ] Uncontrolled [ ] Diabetic conditions/complications [ ] Other, please indicate [] [ ] If Unable to Determine, please check the box, sign and date. Present On Admission (POA) Indicator: [] Present at the time of admission [] Not present at the time of admission [] Clinically Undetermined In responding to this query, please exercise your independent professional judgment. The fact that a question is asked does not imply that any particular answer is desired or expected. Thank you for your clarification on this documentation. If you have any questions please call:Extension [phone] * Thank you, Joann Santos RN CDMP [facility]
[2016-09-13 08:38] LABS: HEMATOCRIT 26.9 % (34.0-47.0); MEAN CELL VOLUME 85.2 fl (81.0-99.0); MEAN CORPUSCULAR HGB CONC 31.6 g/dL (33.0-37.0); RED CELL DISTRIBUTION WIDTH 16.1 % (11.5-14.5); WHITE BLOOD COUNT 4.2 K/uL (4.8-10.8)
--- NOTE | 2016-09-13 08:42 | PQF GENQUE ---
This form is a permanent part of the medical record 09/13/16 Dr. Wolfe, Documentation of Deep Venous Thrombosis. Please clarify the vessels involved , including laterality and the acuity. Venous duplex of lower extremities reveals: 1. Nearly occlusive thrombus in the mid and distal right superficial femoral vein and right popliteal vein. 2. Nearly occlusive thrombus in the distal left popliteal vein. Treated with Lovenox. Clarification of your documentation is requested to better reflect the severity of illness and intensity of treatment of your patient. PHYSICIAN'S RESPONSE 1. Please specify the specific vessel (vein) involved, including laterality:____ 2. Please specify the acuity: [ ] Acute [ ] Chronic [ ] History of/healed with no prophylaxis [ ] History of/healed with prophylaxis [ ] Other (please specify) [ ] Unable to determine [ ] Unknown Based on your medical judgment of the clinical indicators outlined above please clarify the following: [] Practitioner response [] If unable to determine, please check the box, sign and date. Present On Admission (POA) Indicator: [] Present at the time of admission [] Not present at the time of admission [] Clinically Undetermined In responding to this query, please exercise your independent professional judgment. The fact that a question is asked does not imply that any particular answer is desired or expected. Thank you for your clarification on this documentation. If you have any questions please call:Extension [phone] Medical Records Dept * Thank you, Joann Santos RN [facility]
--- NOTE | 2016-09-13 08:48 | PQF BMI ---
This form is a permanent part of the medical record 09/13/16 , Please document the BMI as well . See Physician response below. Documentation of a history of Diabetes and Morbid Obesity. The EMR has the patient listed as 5'7" and weighing 360 pounds with a BMI of 56.4. On a Moderate Consistent CHO diet. Clarification of your documentation is requested to better reflect the severity of illness and intensity of treatment of your patient. Indicators present [x] Documented BMI>40 : EMR has the BMI listed as 56.4 [] Nutritional/Mud Analysis Well Logging Captain consults [] 100 pounds or more over ideal body weight [x] Documented BMI / HT & WT: 5'7", 360 pounds, BMI 56.4 [] Other : [] PHYSICIAN'S RESPONSE Based on your medical judgment of the clinical indicators outlined above, please define the following: [] Morbid obesity with a BMI of [] Obesity with a BMI of [] Other [] [] If unable to determine, please check the box, sign and date. Present On Admission (POA) Indicator: [] Present at the time of admission [] Not present at the time of admission [] Clinically Undetermined In responding to this query, please exercise your independent professional judgment. The fact that a question is asked does not imply that any particular answer is desired or expected. Thank you for your clarification on this documentation. If you have any questions please call:Extension [phone] Medical Records Dept * Thank you, Joann Santos RN CDMP [facility]
[2016-09-13] MEDS: Enoxaparin 100 mg Syringe SC SCH ×2 (09:17→21:08)
[2016-09-13] MEDS: Enoxaparin 60 mg Syringe SC SCH ×2 (09:18→21:09)
--- NOTE | 2016-09-13 10:32 | CARD ---
APPROVED REPORT EKG Measurement Heart [id number] <Conclusion> Normal sinus rhythm Low voltage QRS Borderline ECG
[2016-09-13] MEDS ORDERED: Lactulose 10 gm/15 ml Syrup PO PRN (13:19)
[2016-09-13] MEDS: Pantoprazole 40 mg EC Tab PO SCH (16:30)
[2016-09-13 17:17] LABS: IRON 24 ug/dL (37-170)
[2016-09-14 07:08] LABS: HEMATOCRIT 26.6 % (34.0-47.0); MEAN CELL VOLUME 83.6 fl (81.0-99.0); MEAN CORPUSCULAR HEMOGLOBIN 27.2 pg (27.0-31.0); MEAN CORPUSCULAR HGB CONC 32.5 g/dL (33.0-37.0); RED CELL DISTRIBUTION WIDTH 16.1 % (11.5-14.5); WHITE BLOOD COUNT 4.2 K/uL (4.8-10.8)
[2016-09-14 07:18] LABS: BLOOD UREA NITROGEN 8 mg/dl (7-17); CALCIUM 8.4 mg/dL (8.4-10.2); CARBON DIOXIDE 27 mmol/L (22-30); CHLORIDE 107 mmol/L (98-107); GFR AFRICAN-AMERICAN > 60; GLUCOSE,RANDOM 113 mg/dL (65-105); POTASSIUM 3.9 MMOL/L (3.6-5.0); SODIUM 144 mmol/l (132-148)
[2016-09-14] MEDS: Enoxaparin 60 mg Syringe SC SCH ×2 (09:50→22:39)
[2016-09-14] MEDS: Pantoprazole 40 mg EC Tab PO SCH (09:51)
[2016-09-14] MEDS: Enoxaparin 100 mg Syringe SC SCH ×2 (09:51→22:39)
--- NOTE | 2016-09-14 10:41 | CP.PCM.CON ---
History of Present Illness - History of Present Illness History of Present Illness: This 50 year old female was referred to Pulmonary because of the presence of DVT in both lower extremities. She had undergone back surgery and was in the JESUS unit at this institution and had been doing well. She was discharged to home , but was immobile on her couch when she noted sudden swelling and pain in both legs, the left more than the right. She came to the emergency room where she was found to have DVT in both legs. She denies any respiratory difficulty, cough or SOB. She is scheduled to have a CT angio of the lungs. She relates a fall in November 2015 which resulted in trauma to the RLE and back which resulted in her needing the aforementioned back surgery. She denies any such problems prior to that incident. She is a diabetic who is diet controlled. She is a never smoker without alcohol intake or illicit drug use. Past Patient History - Infectious Disease Hx of Infectious Diseases: None - Tetanus Immunizations Tetanus Immunization: Unknown - Past Medical History & Family History Past Medical History?: Yes Pertinent Family History: CAD, hypertension, diabetes, stroke. - Past Social History Smoking Status: Never Smoked Chewing Tobacco Use: No Cigar Use: No Alcohol: None Drugs: Denies - CARDIAC Hx Cardiac Disorders: No - PULMONARY Hx Respiratory Disorders: No - NEUROLOGICAL Hx Neurological Disorder: No - HEENT Hx HEENT Problems: No - RENAL Hx Chronic Kidney Disease: No - ENDOCRINE/METABOLIC Hx Endocrine Disorders: Yes Hx Diabetes Mellitus Type 2: Yes - HEMATOLOGICAL/ONCOLOGICAL Hx Blood Disorders: No - INTEGUMENTARY Hx Dermatological Problems: No - MUSCULOSKELETAL/RHEUMATOLOGICAL Hx Musculoskeletal Disorders: No - GASTROINTESTINAL Hx Gastrointestinal Disorders: Yes Hx Gastroesophageal Reflux: Yes - GENITOURINARY/GYNECOLOGICAL Hx Genitourinary Disorders: No - PSYCHIATRIC Hx Psychophysiologic Disorder: No Hx Substance Use: No - SURGICAL HISTORY Hx Surgeries: Yes Hx Section: Yes (1991) Hx Tonsillectomy: Yes (10/1995) Other/Comment: 08/26/16 L4-L5 laminectomy with fusion,gastric bypass 01/1997, - ANESTHESIA Hx Anesthesia: Yes Hx Anesthesia Reactions: No Hx Malignant Hyperthermia: No Has any member of the family had a problem w/ anesthesia?: No Meds Allergies/Adverse Reactions: Allergies Allergy/AdvReac Type Severity Reaction Status Date / Time No Known Allergies Allergy Verified 08/31/16 18:27 - Medications Medications: Current Medications Acetaminophen (Tylenol 325mg Tab) 650 mg PO Q4 PRN PRN Reason: Pain, Mild (1-3) Last Admin: 09/13/16 02:56 Dose: 650 mg Diphenhydramine HCl (Benadryl) 25 mg PO Q8 PRN PRN Reason: pruritus Last Admin: 09/13/16 23:56 Dose: 25 mg Docusate Sodium (Colace) 100 mg PO BID [facility] Last Admin: 09/14/16 09:50 Dose: Not Given Enoxaparin Sodium (Lovenox) 100 mg SC Q12 [facility] PRN Reason: Protocol Last Admin: 09/14/16 09:51 Dose: 100 mg Enoxaparin Sodium (Lovenox) 60 mg SC Q12 [facility] Last Admin: 09/14/16 09:50 Dose: 60 mg Gabapentin (Neurontin) 300 mg PO Q12 [facility] Last Admin: 09/14/16 09:51 Dose: 300 mg Hydromorphone HCl (Dilaudid) 1 mg IVP Q6 PRN PRN Reason: Pain, moderate (4-7) Last Admin: 09/13/16 21:41 Dose: 1 mg Lactulose (Enulose) 10 gm PO DAILY PRN PRN Reason: Constipation Loratadine (Claritin) 10 mg PO DAILY [facility] Last Admin: 09/14/16 09:51 Dose: 10 mg Pantoprazole Sodium (Protonix Ec Tab) 40 mg PO DAILY [facility] Last Admin: 09/14/16 09:51 Dose: 40 mg Physical Exam - Additional Findings Additional findings: Obese female seated in recliner, NAD, alert and cooperative. Memory appears intact, speech is fluent. Residual pigmentation at the right ankle related to the original trauma. Calf tenderness bilaterally, L>R. + Anant's L>R. No palpable venous cords. Pharynx is pink and moist w/o exudate. Neck is supple, trachea midline, no visible JVD, no carotid bruit. No palpable thyromegaly. No palpable lymphadenopathy. Lungs are clear to percussion and auscultation. Heart sounds are slightly distant, rhythm is regular, no murmur is heard. Abdomen is obese and non-tender. Results - Vital Signs Recent Vital Signs: Last Vital Signs Temp 98.2 F 09/14/16 09:00 Pulse 79 09/14/16 09:00 Resp 18 09/14/16 09:00 BP 94/62 L 09/14/16 09:00 Pulse Ox 98 09/14/16 09:00 - Labs Result Diagrams: 09/14/16 05:20 09/14/16 06:00 Labs: Laboratory Results - last 24 hr 09/13/16 09/13/16 09/14/16 16:30 16:30 05:20 WBC 4.2 L RBC 3.18 L Hgb 8.7 L Hct 26.6 L MCV 83.6 MCH 27.2 MCHC 32.5 L RDW 16.1 H Plt Count 252 PT 10.3 INR 0.99 Sodium Potassium Chloride Carbon Dioxide Anion Gap BUN Creatinine Est GFR ( Amer) Est GFR (Non-Af Amer) Random Glucose Calcium Iron 24 L TIBC 280 % Saturation 9 L Ferritin Vitamin B12 09/14/16 09/14/16 05:20 06:00 WBC RBC Hgb Hct MCV MCH MCHC RDW Plt Count PT 10.5 INR 1.01 Sodium 144 Potassium 3.9 Chloride 107 Carbon Dioxide 27 Anion Gap 14 BUN 8 Creatinine 0.8 Est GFR ( Amer) > 60 Est GFR (Non-Af Amer) > 60 Random Glucose 113 H Calcium 8.4 Iron TIBC % Saturation Ferritin 18.3 Vitamin B12 582 Assessment & Plan (1) Deep vein thrombosis (DVT) Assessment and Plan: Bilateral lower extremity DVT. Status: Acute Priority: High Comment: Agree with present regimen. Awaiting CTA of lungs. - Date & Time Date: 09/14/16 Time: 10:57
--- NOTE | 2016-09-14 11:25 | CP.PCM.PN ---
<Charlene Colean - Last Filed: 09/14/16 16:46> Subjective - Date & Time of Evaluation Date of Evaluation: 09/14/16 Time of Evaluation: 07:25 - Subjective Subjective: 50F seen and examined at bedside this morning with attending. Patient denies SOB, chest pain, palpitations, N/V, abdominal pain. She does reports some residual calf pain bilaterally. Objective - Vital Signs/Intake and Output Vital Signs (last 24 hours): Temp Pulse Resp BP Pulse Ox 36.8 C 79 18 94/62 L 98 09/14/16 09:00 09/14/16 09:00 09/14/16 09:00 09/14/16 09:00 09/14/16 09:00 - Medications Medications: Current Medications Acetaminophen (Tylenol 325mg Tab) 650 mg PO Q4 PRN PRN Reason: Pain, Mild (1-3) Last Admin: 09/13/16 02:56 Dose: 650 mg Diphenhydramine HCl (Benadryl) 25 mg PO Q8 PRN PRN Reason: pruritus Last Admin: 09/13/16 23:56 Dose: 25 mg Docusate Sodium (Colace) 100 mg PO BID [facility] Last Admin: 09/14/16 09:50 Dose: Not Given Enoxaparin Sodium (Lovenox) 100 mg SC Q12 [facility] PRN Reason: Protocol Last Admin: 09/14/16 09:51 Dose: 100 mg Enoxaparin Sodium (Lovenox) 60 mg SC Q12 [facility] Last Admin: 09/14/16 09:50 Dose: 60 mg Gabapentin (Neurontin) 300 mg PO Q12 [facility] Last Admin: 09/14/16 09:51 Dose: 300 mg Hydromorphone HCl (Dilaudid) 1 mg IVP Q6 PRN PRN Reason: Pain, moderate (4-7) Last Admin: 09/13/16 21:41 Dose: 1 mg Lactulose (Enulose) 10 gm PO DAILY PRN PRN Reason: Constipation Loratadine (Claritin) 10 mg PO DAILY [facility] Last Admin: 09/14/16 09:51 Dose: 10 mg Pantoprazole Sodium (Protonix Ec Tab) 40 mg PO DAILY [facility] Last Admin: 09/14/16 09:51 Dose: 40 mg - Labs Labs: 09/14/16 05:20 09/14/16 06:00 PT 10.5 SECONDS (9.6-11.2) 09/14/16 05:20 INR 1.01 (0.92-1.08) 09/14/16 05:20 - Constitutional Appears: Well (Morbidly obese), Non-toxic, No Acute Distress - Head Exam Head Exam: ATRAUMATIC, NORMAL INSPECTION - Eye Exam Eye Exam: EOMI, Normal appearance - ENT Exam ENT Exam: Mucous Membranes Moist, Normal Exam - Neck Exam Neck Exam: Full ROM, Normal Inspection - Respiratory Exam Respiratory Exam: Clear to Ausculation Bilateral, NORMAL BREATHING PATTERN. absent: Rales, Wheezes - Cardiovascular Exam Cardiovascular Exam: REGULAR RHYTHM. absent: JVD - GI/Abdominal Exam GI & Abdominal Exam: Soft (Obese), Normal Bowel Sounds. absent: Tenderness - Extremities Exam Extremities Exam: Calf Tenderness (L>R), Full ROM, Normal Capillary Refill. absent: Pedal Edema - Neurological Exam Neurological Exam: Alert, Awake - Psychiatric Exam Psychiatric exam: Normal Affect, Normal Mood - Skin Skin Exam: Dry, Warm Assessment and Plan (1) Pulmonary embolus Assessment & Plan: Acute finding of large central saddle PE with pulmonary emboli within bilateral upper and lower lobe pulmonary artery branches. Findings discussed with Dr Wolfe and contacted Dr Morris. Patient is hemodynamically stable. - c/w 160mg Lovenox, SC, Q12H - Dr Morris recommend: Echocardiogram and serial Troponins Status: Acute (2) Deep vein thrombosis (DVT) Assessment & Plan: Pt found to have b/l lower extremity DVTs with exacerbating event that is multifactorial: obesity, decrease mobility, surgery. - Venous duplex lower extremity positive - Lovenox 160mg, SC, Q12H Status: Acute (3) DVT prophylaxis Assessment & Plan: Currently receiving therapeutic Lovenox for DVT in b/l lower extremity 160mg, SC, Q12H Status: Acute (4) DM2 (diabetes mellitus, type 2) Assessment & Plan: A1C- 6.0, no home medications. Although possibly low due to anemia, review of records indicates likely a glucose tolerance issue. Current literaure would suggest that given her BMI she would benefit from being started on Metformin with the above A1C unless otherwise contraindicated. Will discuss with attending in the morning. - MOD CHO - ?Start Metformin Status: Chronic <Renzo Wolfe - Last Filed: 09/24/16 18:16> Objective - Vital Signs/Intake and Output Vital Signs (last 24 hours): Temp Pulse Resp BP Pulse Ox 99.4 F 78 20 95/56 L 100 09/17/16 15:38 09/17/16 15:38 09/17/16 15:38 09/17/16 15:38 09/17/16 15:38 - Labs Labs: 09/16/16 05:40 09/16/16 05:40 PT 11.5 SECONDS (9.6-11.2) H 09/17/16 07:30 INR 1.11 (0.92-1.08) H 09/17/16 07:30 Assessment and Plan - Assessment and Plan (Free Text) Assessment: Patient was personally seen and examined by me in rounds with residents. Available labs and diagnostic data reviewed. Case, Patient's condition and management plan discussed with residents in rounds. Agree with resident's documentation. Plan: As ordered. Renzo Wolfe MD
[2016-09-14] MEDS ORDERED: Oxycodone/Acetaminophen 5/325 mg Tab PO PRN (11:37)
--- NOTE | 2016-09-14 14:47 | PN ---
DATE: 09/13/2016 The patient seen and examined. Interim events noted. The patient complains of pain. Pain controlled with current pain management. No chest pain, no shortness of breath.complains PHYSICAL EXAMINATION: GENERAL: The patient is in no acute distress. VITAL SIGNS: Stable. HEART: S1, S2 normal, regular. LUNGS: Good bilateral air exchange. ABDOMEN: Soft, nontender. EXTREMITIES: No calf swelling, no tenderness, no acute ischemia. CENTRAL NERVOUS SYSTEM: Essentially unchanged. Surgical site is clean without any complications. DIAGNOSTIC DATA: Available diagnostic data reviewed. Telemetry monitoring does not reveal significa nt arrhythmias. Overall, the patient's general medical condition is stable. PLAN: As ordered. Renzo Wolfe MD cc: [id number] TT: 09/13/2016 07:37:31 Confirmation # [id number] Dictation # [id number] nd 09/14/2016 13:46:41
[2016-09-14] MEDS ORDERED: Sodium Chloride 0.9% 50 ML IV ONE (15:14)
[2016-09-14] MEDS ORDERED: Iodixanol 320 MG/ML 100 ML BOTTLE IV ONE (15:14)
--- NOTE | 2016-09-14 16:16 | CT ---
CT chest with IV contrast Indication: b/l DVT, r/o PE Technique: Contiguous axial images were obtained through the chest with intravenous contrast enhancement. Sagittal and coronal reconstructions were generated and reviewed. This CT exam was performed using 1 or more of the falling dose reduction techniques: Automated exposure control, adjustment of the MAA and/or kV according to patient size, and/or use of iterative reconstruction technique. IV Contrast: 95 mL Visipaque 320 Radiation dose (DLP): 355.66 MGy-cm. Comparison: Chest x-ray performed 09/11/16 Findings: Examination limited by habitus. Visualized portions of the inferior thyroid gland appear grossly unremarkable. Cardiomegaly. No significant pericardial effusion. Ascending aorta aneurysm measuring approximately 4 cm in AP dimension. Suboptimal enhancement of the pulmonary arteries. Despite this limitation, there is a large saddle pulmonary embolus evident. Pulmonary emboli also seen within the bilateral upper and lower lobe pulmonary artery branches. No focal consolidation. No pleural effusion. No pneumothorax. No suspicious pulmonary nodules measuring greater than 5 mm. Limited visualization of the upper abdomen reveals left upper quadrant surgical clips. Degenerative changes of the spine. Impression: Large central pulmonary artery saddle embolus. Additionally, pulmonary emboli are seen within bilateral upper and lower lobe pulmonary artery branches Ascending aortic aneurysm measuring approximately 4 mm in AP dimension. Additional incidental findings as above. Emergent findings discussed with IMTIAZ Angeles on 09/14/16 at 404 pm
[2016-09-14 17:36] LABS: FOLATE > 20.0 ng/mL
--- NOTE | 2016-09-15 07:33 | CP.PCM.PN ---
<Sydney Cole - Last Filed: 09/15/16 19:14> Subjective - Date & Time of Evaluation Date of Evaluation: 09/15/16 Time of Evaluation: 07:33 - Subjective Subjective: 50F seen and examined at bedside with attending. Pt denies SOB or chest pain at this time and reports pain in calves is beginning to improve. Otherwise no acute complaints Objective - Vital Signs/Intake and Output Vital Signs (last 24 hours): Temp Pulse Resp BP Pulse Ox 36.4 C 69 20 113/72 96 09/15/16 05:03 09/15/16 05:03 09/15/16 05:03 09/15/16 05:03 09/15/16 05:03 - Medications Medications: Current Medications Acetaminophen (Tylenol 325mg Tab) 650 mg PO Q4 PRN PRN Reason: Pain, Mild (1-3) Last Admin: 09/13/16 02:56 Dose: 650 mg Diphenhydramine HCl (Benadryl) 25 mg PO Q8 PRN PRN Reason: pruritus Last Admin: 09/13/16 23:56 Dose: 25 mg Docusate Sodium (Colace) 100 mg PO BID [facility] Last Admin: 09/14/16 16:27 Dose: Not Given Enoxaparin Sodium (Lovenox) 100 mg SC Q12 [facility] PRN Reason: Protocol Last Admin: 09/14/16 22:39 Dose: 100 mg Enoxaparin Sodium (Lovenox) 60 mg SC Q12 [facility] Last Admin: 09/14/16 22:39 Dose: 60 mg Ferrous Sulfate (Feosol) 325 mg PO BIDWM [facility] Last Admin: 09/14/16 16:27 Dose: 325 mg Gabapentin (Neurontin) 300 mg PO Q12 [facility] Last Admin: 09/14/16 22:38 Dose: 300 mg Hydromorphone HCl (Dilaudid) 2 mg PO Q8H PRN PRN Reason: Pain, moderate (4-7) Last Admin: 09/15/16 06:22 Dose: 2 mg Lactulose (Enulose) 10 gm PO DAILY PRN PRN Reason: Constipation Loratadine (Claritin) 10 mg PO DAILY [facility] Last Admin: 09/14/16 09:51 Dose: 10 mg Ondansetron HCl (Zofran Inj) 4 mg IVP Q6 PRN PRN Reason: Nausea/Vomiting Last Admin: 09/15/16 06:55 Dose: 4 mg Pantoprazole Sodium (Protonix Ec Tab) 40 mg PO DAILY [facility] Last Admin: 09/14/16 09:51 Dose: 40 mg - Labs Labs: 09/14/16 05:20 09/14/16 06:00 PT 10.5 SECONDS (9.6-11.2) 09/14/16 05:20 INR 1.01 (0.92-1.08) 09/14/16 05:20 - Constitutional Appears: Well, Non-toxic, No Acute Distress - Head Exam Head Exam: ATRAUMATIC, NORMAL INSPECTION - Eye Exam Eye Exam: EOMI, PERRL - ENT Exam ENT Exam: Mucous Membranes Moist, Normal Exam - Respiratory Exam Respiratory Exam: Clear to Ausculation Bilateral, NORMAL BREATHING PATTERN. absent: Rales, Wheezes - Cardiovascular Exam Cardiovascular Exam: REGULAR RHYTHM. absent: JVD - GI/Abdominal Exam GI & Abdominal Exam: Soft, Normal Bowel Sounds. absent: Tenderness - Extremities Exam Extremities Exam: Normal Capillary Refill. absent: Pedal Edema Additional comments: Calf Tenderness improved (L>R) - Neurological Exam Neurological Exam: Alert, Awake, Oriented x3 - Psychiatric Exam Psychiatric exam: Normal Affect, Normal Mood - Skin Skin Exam: Normal Color, Warm Assessment and Plan (1) Pulmonary embolus Assessment & Plan: Acute, patient remains hemodynamically stable, anticoagulation discussed with the patient and she understands that Coumadin will be chosen. Initial Troponin x2 negative. - c/w 160mg Lovenox, SC, Q12H bridge to Coumadin - Coumadin 10mg, PO, Daily - PT/INR, Daily - Dr Morris recommend: Echo, troponins, investigate genetic markers Status: Acute (2) Deep vein thrombosis (DVT) Assessment & Plan: Pt found to have acute b/l lower extremity DVTs with exacerbating event that is multifactorial: obesity, decrease mobility, surgery. - Venous duplex lower extremity positive - c/w 160mg Lovenox, SC, Q12H bridge to Coumadin - Coumadin 10mg, PO, Daily - PT/INR, Daily - Dr Morris recommend: Echo, troponins, investigate genetic markers Status: Acute (3) DVT prophylaxis Assessment & Plan: Currently receiving therapeutic Lovenox for DVT in b/l lower extremity 160mg, SC, Q12H Status: Acute (4) DM2 (diabetes mellitus, type 2) Assessment & Plan: A1C- 6.0, no home medications. Discussed with attending and patient both of whom agree to starting Metformin. - MOD CHO - Metformin 500mg, PO, BIDWM Status: Chronic (5) Morbidly obese Assessment & Plan: BMI: 56 Status: Chronic (6) Iron deficiency anemia due to dietary causes Assessment & Plan: Patient asymptomatic. - Started Feosol 325mg, PO, BID Status: Chronic <Renzo Wolfe - Last Filed: 09/24/16 18:18> Objective - Vital Signs/Intake and Output Vital Signs (last 24 hours): Temp Pulse Resp BP Pulse Ox 99.4 F 78 20 95/56 L 100 09/17/16 15:38 09/17/16 15:38 09/17/16 15:38 09/17/16 15:38 09/17/16 15:38 - Labs Labs: 09/16/16 05:40 09/16/16 05:40 PT 11.5 SECONDS (9.6-11.2) H 09/17/16 07:30 INR 1.11 (0.92-1.08) H 09/17/16 07:30 Assessment and Plan - Assessment and Plan (Free Text) Assessment: Patient was personally seen and examined by me in rounds with residents. Available labs and diagnostic data reviewed. Case, Patient's condition and management plan discussed with residents in rounds. Agree with resident's documentation. Plan: As ordered. Renzo Wolfe MD
[2016-09-15 08:40] LABS: HEMATOCRIT 29.9 % (34.0-47.0); MEAN CELL VOLUME 83.6 fl (81.0-99.0); MEAN CORPUSCULAR HEMOGLOBIN 26.9 pg (27.0-31.0); MEAN CORPUSCULAR HGB CONC 32.2 g/dL (33.0-37.0); RED CELL DISTRIBUTION WIDTH 16.3 % (11.5-14.5); WHITE BLOOD COUNT 4.6 K/uL (4.8-10.8)
[2016-09-15 08:45] LABS: CHLORIDE 104 mmol/L (98-107); SODIUM 142 mmol/l (132-148)
[2016-09-15 08:48] LABS: CARBON DIOXIDE 26 mmol/L (22-30); GFR AFRICAN-AMERICAN > 60
[2016-09-15 08:49] LABS: BLOOD UREA NITROGEN 8 mg/dl (7-17); CALCIUM 8.9 mg/dL (8.4-10.2); GLUCOSE,RANDOM 126 mg/dL (65-105)
[2016-09-15] MEDS: Enoxaparin 60 mg Syringe SC SCH ×2 (08:51→22:10)
[2016-09-15] MEDS: Enoxaparin 100 mg Syringe SC SCH ×2 (08:51→22:10)
[2016-09-15] MEDS: Pantoprazole 40 mg EC Tab PO SCH (08:52)
--- NOTE | 2016-09-15 10:33 | CARD ---
APPROVED REPORT EXAM: Two-dimensional and M-mode echocardiogram with Doppler and color Doppler. Other Information Quality : GoodRhythm : NSR Technically limited study due to body habitus. INDICATION Pulmonary Embolism 2D DIMENSIONS IVSd1.11 (0.7-1.1cm)LVDd4.70 (3.9-5.9cm) PWd1.09 (0.7-1.1cm)IVSs1.10 (0.8-1.2cm) LVDs3.19 (2.5-4.0cm)FS (%) 32.0 % PWs1.46 (0.8-1.2cm) M-Mode DIMENSIONS Left Atrium (MM)4.60 (2.5-4.0cm)IVSd1.06 (0.7-1.1cm) Aortic Root3.11 (2.2-3.7cm)LVDd5.53 (4.0-5.6cm) Aortic Cusp Exc.2.35 (1.5-2.0cm)PWd1.36 (0.7-1.1cm) IVSs1.72 cmFS (%) 46 % LVDs3.01 (2.0-3.8cm)PWs1.62 cm Mitral Valve E/A ratio0.0 TDI E/Lateral E'0.0E/Medial E'0.0 Pulmonary Valve PV Peak Gzuejkwa706.0cm/s LEFT VENTRICLE The left ventricle is normal size. There is normal left ventricular wall thickness. Left ventricle systolic function is normal. The Ejection Fraction is 60-65%. There is normal LV segmental wall motion. Transmitral Doppler flow pattern is Grade I-abnormal relaxation pattern. RIGHT VENTRICLE The right ventricle is mildly dilated. With inspiration, septum bulges towards LV (see image 56) There is normal right ventricular wall thickness. The right ventricular systolic function is normal. ATRIA The left atrium size is normal. The right atrium size is normal. AORTIC VALVE The aortic valve is normal in structure and function. No aortic regurgitation is present. There is no aortic valvular stenosis. MITRAL VALVE The mitral valve is normal in structure and function. There is no evidence of mitral valve prolapse. There is no mitral valve stenosis. There is no mitral valve regurgitation noted. TRICUSPID VALVE The tricuspid valve is normal in structure and function. There is no tricuspid valve regurgitation noted. PULMONIC VALVE The pulmonary valve is normal in structure and function. There is no pulmonic valvular regurgitation. GREAT VESSELS The aortic root is normal in size. The IVC is normal in size and collapses >50% with inspiration. PERICARDIAL EFFUSION The pericardium appears normal. <Conclusion> Suboptimal images due to poor echo window. The left ventricle is normal size. There is normal left ventricular wall thickness. There is normal LV segmental wall motion. Left ventricle systolic function is normal. The Ejection Fraction is 60-65%. Transmitral Doppler flow pattern is Grade I-abnormal relaxation pattern. The right ventricle is mildly dilated. With inspiration, septum bulges towards LV (see image 56)
[2016-09-16 07:12] LABS: BLOOD UREA NITROGEN 10 mg/dl (7-17); CARBON DIOXIDE 30 mmol/L (22-30); CHLORIDE 103 mmol/L (98-107); GFR AFRICAN-AMERICAN > 60; GLUCOSE,RANDOM 117 mg/dL (65-105); HEMATOCRIT 29.6 % (34.0-47.0); MEAN CELL VOLUME 83.6 fl (81.0-99.0); MEAN CORPUSCULAR HEMOGLOBIN 26.8 pg (27.0-31.0); MEAN CORPUSCULAR HGB CONC 32.1 g/dL (33.0-37.0); POTASSIUM 4.7 MMOL/L (3.6-5.0); RED CELL DISTRIBUTION WIDTH 16.7 % (11.5-14.5); SODIUM 141 mmol/l (132-148); WHITE BLOOD COUNT 4.9 K/uL (4.8-10.8)
--- NOTE | 2016-09-16 08:06 | CP.PCM.PN ---
<Sydney Cole - Last Filed: 09/16/16 12:06> Subjective - Date & Time of Evaluation Date of Evaluation: 09/16/16 Time of Evaluation: 07:15 - Subjective Subjective: f/u for b/l DVT and PE bridging to Coumadin 50F seen and examined at bedside with attending Patient denies SOB or chest pain. She describes an episode of vomiting last night after dinner but continues to pass flatus and have BMs. She affirms that food is not different or a problem from what she eats at home. Otherwise, pain in calves has improved and she denies any urinary symptoms. Objective - Vital Signs/Intake and Output Vital Signs (last 24 hours): Temp Pulse Resp BP Pulse Ox 36.6 C 69 20 124/73 95 09/16/16 05:09 09/16/16 05:09 09/16/16 05:09 09/16/16 05:09 09/16/16 05:09 - Medications Medications: Current Medications Acetaminophen (Tylenol 325mg Tab) 650 mg PO Q4 PRN PRN Reason: Pain, Mild (1-3) Last Admin: 09/13/16 02:56 Dose: 650 mg Diphenhydramine HCl (Benadryl) 25 mg PO Q8 PRN PRN Reason: pruritus Last Admin: 09/13/16 23:56 Dose: 25 mg Docusate Sodium (Colace) 100 mg PO BID [facility] Last Admin: 09/15/16 18:04 Dose: Not Given Enoxaparin Sodium (Lovenox) 100 mg SC Q12 [facility] PRN Reason: Protocol Last Admin: 09/15/16 22:10 Dose: 100 mg Enoxaparin Sodium (Lovenox) 60 mg SC Q12 [facility] Last Admin: 09/15/16 22:10 Dose: 60 mg Ferrous Sulfate (Feosol) 325 mg PO BIDWM [facility] Last Admin: 09/15/16 16:26 Dose: 325 mg Gabapentin (Neurontin) 300 mg PO Q12 [facility] Last Admin: 09/15/16 22:11 Dose: 300 mg Hydromorphone HCl (Dilaudid) 2 mg PO Q8H PRN PRN Reason: Pain, moderate (4-7) Last Admin: 09/15/16 22:12 Dose: 2 mg Lactulose (Enulose) 10 gm PO DAILY PRN PRN Reason: Constipation Loratadine (Claritin) 10 mg PO DAILY [facility] Last Admin: 09/15/16 08:52 Dose: 10 mg Metformin HCl (Glucophage) 500 mg PO BIDWM [facility] Last Admin: 09/15/16 16:26 Dose: 500 mg Ondansetron HCl (Zofran Inj) 4 mg IVP Q6 PRN PRN Reason: Nausea/Vomiting Last Admin: 09/15/16 18:36 Dose: 4 mg Pantoprazole Sodium (Protonix Ec Tab) 40 mg PO DAILY [facility] Last Admin: 09/15/16 08:52 Dose: 40 mg - Labs Labs: 09/16/16 05:40 09/16/16 05:40 PT 10.6 SECONDS (9.6-11.2) 09/16/16 05:40 INR 1.02 (0.92-1.08) 09/16/16 05:40 - Constitutional Appears: Well, Non-toxic, No Acute Distress - Head Exam Head Exam: ATRAUMATIC, NORMAL INSPECTION - Eye Exam Eye Exam: EOMI, PERRL - ENT Exam ENT Exam: Mucous Membranes Moist, Normal Exam - Respiratory Exam Respiratory Exam: Clear to Ausculation Bilateral, NORMAL BREATHING PATTERN. absent: Rales, Wheezes - Cardiovascular Exam Cardiovascular Exam: REGULAR RHYTHM. absent: JVD - GI/Abdominal Exam GI & Abdominal Exam: Soft, Normal Bowel Sounds. absent: Tenderness - Extremities Exam Extremities Exam: Normal Capillary Refill. absent: Normal Inspection (obese, difficult to assess enlarged or not), Tenderness - Neurological Exam Neurological Exam: Alert, Awake - Psychiatric Exam Psychiatric exam: Normal Affect - Skin Skin Exam: Normal Color, Warm Assessment and Plan (1) Pulmonary embolus Assessment & Plan: Acute, patient remains hemodynamically stable, Troponin x2 negative. Vomited Coumadin last night, will proceed with another dose of 10mg. Discussed case with Dr Morris and and Dr Wolfe and the decision was made to place IVC filter due to echo showing RV strain combined with extent of clot burden. Discussed extensively with the patient. - c/w 160mg Lovenox, SC, Q12H bridge to Coumadin - Coumadin 10mg, PO, Daily - PT/INR, Daily - Dr Morris recommend: f/u genetic markers Status: Acute (2) Deep vein thrombosis (DVT) Assessment & Plan: Pt found to have acute b/l lower extremity DVTs with exacerbating event that is multifactorial: obesity, decrease mobility, surgery. - Venous duplex lower extremity positive - c/w 160mg Lovenox, SC, Q12H bridge to Coumadin - Coumadin 10mg, PO, Daily - PT/INR, Daily - Dr Morris recommend: f/u genetic markers Status: Acute (3) DVT prophylaxis Assessment & Plan: Currently receiving therapeutic Lovenox for DVT in b/l lower extremity 160mg, SC, Q12H Status: Acute (4) DM2 (diabetes mellitus, type 2) Assessment & Plan: A1C- 6.0, no home medications. Discussed with attending and patient both of whom agree to starting Metformin. - MOD CHO - Metformin 500mg, PO, BIDWM Status: Chronic (5) Morbidly obese Assessment & Plan: BMI: 56 Status: Chronic (6) Iron deficiency anemia due to dietary causes Assessment & Plan: Patient asymptomatic, continues to improve. - Started Feosol 325mg, PO, BID Status: Chronic <Renzo Wolfe - Last Filed: 09/24/16 18:19> Objective - Vital Signs/Intake and Output Vital Signs (last 24 hours): Temp Pulse Resp BP Pulse Ox 99.4 F 78 20 95/56 L 100 09/17/16 15:38 09/17/16 15:38 09/17/16 15:38 09/17/16 15:38 09/17/16 15:38 - Labs Labs: 09/16/16 05:40 09/16/16 05:40 PT 11.5 SECONDS (9.6-11.2) H 09/17/16 07:30 INR 1.11 (0.92-1.08) H 09/17/16 07:30 Assessment and Plan - Assessment and Plan (Free Text) Assessment: Patient was personally seen and examined by me in rounds with residents. Available labs and diagnostic data reviewed. Case, Patient's condition and management plan discussed with residents in rounds. Agree with resident's documentation. Plan: As ordered. Renzo Wolfe MD
[2016-09-16] MEDS: Enoxaparin 100 mg Syringe SC SCH ×2 (08:27→21:46)
[2016-09-16] MEDS: Pantoprazole 40 mg EC Tab PO SCH (08:31)
[2016-09-16] MEDS: Enoxaparin 60 mg Syringe SC SCH ×2 (08:33→21:46)
--- NOTE | 2016-09-16 11:02 | CP.PCM.PN ---
Subjective - Date & Time of Evaluation Date of Evaluation: 09/16/16 Time of Evaluation: 11:00 - Subjective Subjective: Informed the patient and her family of all the findings. Agree with warfarin for a three to six month duration. Echocardiogram does show RV dilatation, but troponins are negative. Recent back surgery precludes thrombolysis in this case. Would suggest temporary IVC filter considering RV function and persistent LE thrombi. Objective - Vital Signs/Intake and Output Vital Signs (last 24 hours): Temp Pulse Resp BP Pulse Ox 98.5 F 77 18 121/70 95 09/16/16 08:18 09/16/16 08:18 09/16/16 08:18 09/16/16 08:18 09/16/16 08:18 - Medications Medications: Current Medications Acetaminophen (Tylenol 325mg Tab) 650 mg PO Q4 PRN PRN Reason: Pain, Mild (1-3) Last Admin: 09/13/16 02:56 Dose: 650 mg Diphenhydramine HCl (Benadryl) 25 mg PO Q8 PRN PRN Reason: pruritus Last Admin: 09/13/16 23:56 Dose: 25 mg Docusate Sodium (Colace) 100 mg PO BID [facility] Last Admin: 09/16/16 08:31 Dose: 100 mg Enoxaparin Sodium (Lovenox) 100 mg SC Q12 [facility] PRN Reason: Protocol Last Admin: 09/16/16 08:27 Dose: 100 mg Enoxaparin Sodium (Lovenox) 60 mg SC Q12 [facility] Last Admin: 09/16/16 08:33 Dose: 60 mg Ferrous Sulfate (Feosol) 325 mg PO BIDWM [facility] Last Admin: 09/16/16 08:30 Dose: 325 mg Gabapentin (Neurontin) 300 mg PO Q12 [facility] Last Admin: 09/16/16 08:30 Dose: 300 mg Hydromorphone HCl (Dilaudid) 2 mg PO Q8H PRN PRN Reason: Pain, moderate (4-7) Last Admin: 09/16/16 08:40 Dose: 2 mg Lactulose (Enulose) 10 gm PO DAILY PRN PRN Reason: Constipation Loratadine (Claritin) 10 mg PO DAILY [facility] Last Admin: 09/16/16 08:31 Dose: 10 mg Metformin HCl (Glucophage) 500 mg PO BIDWM [facility] Last Admin: 09/16/16 08:30 Dose: 500 mg Ondansetron HCl (Zofran Inj) 4 mg IVP Q6 PRN PRN Reason: Nausea/Vomiting Last Admin: 09/15/16 18:36 Dose: 4 mg Pantoprazole Sodium (Protonix Ec Tab) 40 mg PO DAILY [facility] Last Admin: 09/16/16 08:31 Dose: 40 mg Warfarin Sodium (Coumadin) 10 mg PO QD5 [facility] PRN Reason: Protocol Stop: 09/16/16 17:01 - Labs Labs: 09/16/16 05:40 09/16/16 05:40 PT 10.6 SECONDS (9.6-11.2) 09/16/16 05:40 INR 1.02 (0.92-1.08) 09/16/16 05:40 Assessment and Plan (1) Deep vein thrombosis (DVT) Status: Acute
[2016-09-16] MEDS ORDERED: Lidocaine 1% Inj (20ml) ONE (13:29)
[2016-09-16] MEDS ORDERED: Iodixanol 320 MG/ML 100 ML BOTTLE IV ONE ×2 (13:36→13:51)
--- NOTE | 2016-09-16 14:18 | PCM.SURG1 ---
Surgeon's Initial Post Op Note - Surgeon's Notes Surgeon: Steph Drawing Tracer: None Type of Anesthesia: Local Pre-Operative Diagnosis: DVT and PE Operative Findings: Patent right CFV Post-Operative Diagnosis: DVT and PE Operation Performed: IVC filter placement. Specimen/Specimens Removed: None Estimated Blood Loss: EBL {In ML}: 1 Date of Surgery/Procedure: 09/16/16 Time of Surgery/Procedure: 14:15
--- NOTE | 2016-09-17 06:49 | CP.PCM.DIS ---
Provider - Provider Date of Admission: 09/11/16 22:53 Attending physician: Renzo Wolfe MD Time Spent in preparation of Discharge (in minutes): 45 Diagnosis - Discharge Diagnosis (1) Pulmonary embolus Status: Acute Comment: Pt remains hemodynamically stable and had IVC filter placed 09/16 with continued RIGHT groin hemostasis. She continues to be bridging from Lovenox to Coumadin. (2) Deep vein thrombosis (DVT) Status: Acute Priority: High Comment: Bilateral lower extremity edema and pain has continued to improve. Although considered provoked at this time, will need to follow up with investigations into possible genetic predisposition. (3) DVT prophylaxis Status: Acute Comment: Patient will continue on therapeutic Lovenox 160mg, SC, Q12H until bridging to Coumadin with target INR 2-3. (4) Morbidly obese Status: Chronic Comment: BMI-56 (5) Iron deficiency anemia due to dietary causes Status: Chronic Comment: Continues on Feosol 325mg, PO, BID with gradual improvement. Can be re -assesed with PMD (6) Prediabetes Status: Chronic Comment: Patient's A1C-6.0 and with her BMI she has been started on Metformin 500mg, PO, BIDWM (7) UTI (urinary tract infection) Status: Acute Comment: Present on admission, started on Macrobid 100mg, PO, Q12H, x5 days Hospital Course - Lab Results Lab Results: Micro Results 09/14/16 18:44 Urine Urine Culture - Final Escherichia Coli Enterococcus Faecalis Most Recent Lab Values WBC 4.9 K/uL (4.8-10.8) 09/16/16 05:40 RBC 3.54 Mil/uL (3.80-5.20) L 09/16/16 05:40 Hgb 9.5 g/dL (12.0-16.0) L 09/16/16 05:40 Hct 29.6 % (34.0-47.0) L 09/16/16 05:40 MCV 83.6 fl (81.0-99.0) 09/16/16 05:40 MCH 26.8 pg (27.0-31.0) L 09/16/16 05:40 MCHC 32.1 g/dL (33.0-37.0) L 09/16/16 05:40 RDW 16.7 % (11.5-14.5) H 09/16/16 05:40 Plt Count 311 K/uL (130-400) 09/16/16 05:40 MPV 8.7 fl (7.2-11.7) 09/11/16 21:55 Neut % (Auto) 69.1 % (50.0-75.0) 09/11/16 21:55 Lymph % (Auto) 22.4 % (20.0-40.0) 09/11/16 21:55 [place] % (Auto) 4.9 % (0.0-10.0) 09/11/16 21:55 Eos % (Auto) 2.4 % (0.0-4.0) 09/11/16 21:55 Baso % (Auto) 1.2 % (0.0-2.0) 09/11/16 21:55 Neut # 4.2 K/uL (1.8-7.0) 09/11/16 21:55 Lymph # 1.4 K/uL (1.0-4.3) 09/11/16 21:55 [place] # 0.3 K/uL (0.0-0.8) 09/11/16 21:55 Eos # 0.1 K/uL (0.0-0.7) 09/11/16 21:55 Baso # 0.1 K/uL (0.0-0.2) 09/11/16 21:55 Retic Count 2.9 % (0.5-1.5) H 09/12/16 11:00 PT 10.6 SECONDS (9.6-11.2) 09/16/16 05:40 INR 1.02 (0.92-1.08) 09/16/16 05:40 Sodium 141 mmol/l (132-148) 09/16/16 05:40 Potassium 4.7 MMOL/L (3.6-5.0) 09/16/16 05:40 Chloride 103 mmol/L (98-107) 09/16/16 05:40 Carbon Dioxide 30 mmol/L (22-30) 09/16/16 05:40 Anion Gap 13 (10-20) 09/16/16 05:40 BUN 10 mg/dl (7-17) 09/16/16 05:40 Creatinine 0.9 mg/dL (0.7-1.2) 09/16/16 05:40 Est GFR ( Amer) > 60 09/16/16 05:40 Est GFR (Non-Af Amer) > 60 09/16/16 05:40 Random Glucose 117 mg/dL (65-105) H 09/16/16 05:40 Calcium 9.0 mg/dL (8.4-10.2) 09/16/16 05:40 Iron 24 ug/dL (37-170) L 09/13/16 16:30 TIBC 280 ug/dL (250-450) 09/13/16 16:30 % Saturation 9 % (20-55) L 09/13/16 16:30 Ferritin 18.3 ng/mL 09/14/16 06:00 Total Bilirubin 0.4 mg/dl (0.2-1.3) 09/13/16 06:10 AST 20 U/L (14-36) 09/13/16 06:10 ALT 25 U/L (9-52) 09/13/16 06:10 Alkaline Phosphatase 106 U/L (38-126) 09/13/16 06:10 Troponin I < 0.0120 ng/mL (0.00-0.120) 09/15/16 08:30 Total Protein 5.5 G/DL (6.3-8.2) L 09/13/16 06:10 Albumin 2.6 g/dL (3.5-5.0) L 09/13/16 06:10 Globulin 3.0 gm/dL (2.2-3.9) 09/13/16 06:10 Albumin/Globulin Ratio 0.9 (1.0-2.1) L 09/13/16 06:10 Vitamin B12 582 pg/mL (239-931) 09/14/16 06:00 Folate > 20.0 ng/mL 09/14/16 06:00 TSH 3rd Generation 0.70 mIU/ML (0.46-4.68) 09/12/16 01:10 Urine Color Yellow (YELLOW) 09/12/16 00:23 Urine Clarity Slighty-cloudy (Clear) 09/12/16 00:23 Urine pH 6.0 (5.0-8.0) 09/12/16 00:23 Ur Specific [place] 1.025 (1.003-1.030) 09/12/16 00:23 Urine Protein 30 mg/dL (NEGATIVE) 09/12/16:23 Urine Glucose (UA) Neg mg/dL (Normal) 09/12/16: Urine Ketones Negative mg/dL (NEGATIVE) 09/12/16: Urine Blood Negative (NEGATIVE) 09/12/16: Urine Nitrate Negative (NEGATIVE) 09/12/16: Urine Bilirubin Negative (NEGATIVE) 09/12/16: Urine Urobilinogen 0.2-1.0 mg/dL (0.2-1.0) 09/12/16:23 Ur Leukocyte Esterase Trace [place]/uL (Negative) 09/12/16: Urine RBC (Auto) 37 /hpf (0-3) H 09/12/16: Urine Microscopic WBC 13 /hpf (0-5) H 09/12/16: Ur Squamous Epith Cells 5 /hpf (0-5) 09/12/16: Calcium Oxalate Crystal Occ /hpf (<OCC) H 09/12/16: Urine Bacteria Mod (<OCC) H 09/12/16:23 - Hospital Course Hospital Course: Patient seen and examined at bedside with attending this morning. She denies any SOB, chest pain, palpitations, and had no further episodes of vomiting. Her pain is well-controlled. Patient was admitted for provoked bilateral near-occlusive DVTs after undergoing uncomplicated laminectomy with acute rehabilitation and subsequently found to have multiple peripheral PEs and a large saddle emobli that on further investigation with echocardiogram was causing RV strain. She was immediately started on therapeutic Lovenox and tPA was not pursued because patient was constantly hemodynamically stable and had recent back surgery. An IVC filter was placed due to the evident RV strain caused by the large saddle embolus. Clinically patient has improved, she is being bridged to Coumadin as NOACs are not an option due to her BMI. Although this is considered a provoked event genetic predisposition is being evaluated as a precaution. She is stable for transfer to TCU for further physical therapy and bridging to Coumadin. Consultants: Dr Morris(Pulmonary) and Dr Choi(IR) Discharge Exam - Head Exam Head Exam: ATRAUMATIC, NORMAL INSPECTION - Eye Exam Eye Exam: EOMI, PERRL - ENT Exam ENT Exam: Mucous Membranes Moist, Normal Oropharynx - Neck Exam Neck exam: Normal Inspection - Respiratory Exam Respiratory Exam: Clear to PA & Lateral, Rales, NORMAL BREATHING PATTERN. absent: Wheezes - Cardiovascular Exam Cardiovascular Exam: REGULAR RHYTHM. absent: JVD - GI/Abdominal Exam GI & Abdominal Exam: Normal Bowel Sounds, Soft (Obese). absent: Tenderness - Extremities Exam Extremities exam: full ROM, normal capillary refill Additional comments: RIGHT groin IVC insertion site c/d/i no evidence of hematoma/erythema/pain - Back Exam Back exam: paraspinal tenderness (At site of laminectomy, drsg is dry, wound appears well-approximated, omar due to be removed 09/21/2016 (Patient's f/u appointment)) - Neurological Exam Neurological exam: Alert, CN II-XII Intact - Psychiatric Exam Psychiatric exam: Normal Affect, Normal Mood - Skin Skin Exam: Dry, Warm Discharge Plan - Discharge Medications Prescriptions: DiphenhydrAMINE [Benadryl] 25 mg PO Q8 PRN #15 cap PRN Reason: pruritus Docusate [Colace] 100 mg PO BID #60 cap Enoxaparin [Lovenox] 100 mg SC Q12 #2 syr Enoxaparin [Lovenox] 60 mg SC Q12 #2 syr Ferrous Sulfate [Feosol] 325 mg PO BIDWM #60 tab Gabapentin [Neurontin] 300 mg PO Q12 #60 cap HYDROmorphone [Dilaudid] 2 mg PO Q8H PRN #3 tab PRN Reason: Pain, Moderate (4-7) Lactulose [Enulose] 10 gm PO DAILY PRN #2 PRN Reason: Constipation Loratadine [Claritin] 10 mg PO DAILY #2 tab metFORMIN [glucOPHAGE] 500 mg PO BIDWM #60 tab Nitrofurantoin Macrocrystals [Macrobid] 100 mg PO Q12 #10 cap Ondansetron [Zofran Inj] 4 mg IVP Q6 PRN #2 vial PRN Reason: Nausea/Vomiting Pantoprazole [Protonix EC Tab] 40 mg PO DAILY #30 ect Warfarin [Coumadin] 10 mg PO QD5 #10 tab - Follow Up Plan Condition: STABLE Disposition: HOME/ ROUTINE Patient education suggested?: Yes Instructions: Warfarin (By mouth), Pulmonary Embolism (DC), Deep Venous Thrombosis (DC) Referrals: Renzo Wolfe MD [Staff Provider] - Balaji Morris MD [Staff Provider] -
[2016-09-17] MEDS: Enoxaparin 100 mg Syringe SC SCH (09:18)
[2016-09-17] MEDS: Pantoprazole 40 mg EC Tab PO SCH (09:19)
[2016-09-17] MEDS: Enoxaparin 60 mg Syringe SC SCH (09:21)
--- NOTE | 2016-09-17 13:04 | CP.PCM.PN ---
Subjective - Date & Time of Evaluation Date of Evaluation: 09/17/16 Time of Evaluation: 13:01 - Subjective Subjective: Appears comfortable. Warfarin begun, bridging with enoxaparin. Patient complains of urinary urgency and discomfort. Lower extremities are less edematous and warm. No calf tenderness or cyanosis. IVC filter placed yesterday w/o incident. Pyuria with 50-100,000 cols E coli/enterococcus. No SOB or cough. Vitals are stable. TTE shows mildly dilated RV. Objective - Vital Signs/Intake and Output Vital Signs (last 24 hours): Temp Pulse Resp BP Pulse Ox 98.1 F 73 18 106/71 97 09/17/16 11:59 09/17/16 11:59 09/17/16 11:59 09/17/16 11:59 09/17/16 11:59 - Medications Medications: Current Medications Acetaminophen (Tylenol 325mg Tab) 650 mg PO Q4 PRN PRN Reason: Pain, Mild (1-3) Last Admin: 09/13/16 02:56 Dose: 650 mg Diphenhydramine HCl (Benadryl) 25 mg PO Q8 PRN PRN Reason: pruritus Last Admin: 09/17/16 09:20 Dose: 25 mg Docusate Sodium (Colace) 100 mg PO BID [facility] Last Admin: 09/17/16 09:20 Dose: Not Given Enoxaparin Sodium (Lovenox) 100 mg SC Q12 [facility] PRN Reason: Protocol Last Admin: 09/17/16 09:18 Dose: 100 mg Enoxaparin Sodium (Lovenox) 60 mg SC Q12 [facility] Last Admin: 09/17/16 09:21 Dose: 60 mg Ferrous Sulfate (Feosol) 325 mg PO BIDWM [facility] Last Admin: 09/17/16 08:35 Dose: 325 mg Gabapentin (Neurontin) 300 mg PO Q12 [facility] Last Admin: 09/17/16 09:19 Dose: 300 mg Hydromorphone HCl (Dilaudid) 2 mg PO Q8H PRN PRN Reason: Pain, moderate (4-7) Last Admin: 09/16/16 08:40 Dose: 2 mg Lactulose (Enulose) 10 gm PO DAILY PRN PRN Reason: Constipation Loratadine (Claritin) 10 mg PO DAILY [facility] Last Admin: 09/17/16 09:20 Dose: 10 mg Metformin HCl (Glucophage) 500 mg PO BIDWM [facility] Last Admin: 09/17/16 08:36 Dose: 500 mg Ondansetron HCl (Zofran Inj) 4 mg IVP Q6 PRN PRN Reason: Nausea/Vomiting Last Admin: 09/15/16 18:36 Dose: 4 mg Pantoprazole Sodium (Protonix Ec Tab) 40 mg PO DAILY [facility] Last Admin: 09/17/16 09:19 Dose: 40 mg Warfarin Sodium (Coumadin) 10 mg PO QD5 [facility] PRN Reason: Protocol Stop: 09/17/16 17:01 - Labs Labs: 09/16/16 05:40 09/16/16 05:40 PT 11.5 SECONDS (9.6-11.2) H 09/17/16 07:30 INR 1.11 (0.92-1.08) H 09/17/16 07:30 Assessment and Plan (1) Deep vein thrombosis (DVT) Status: Acute (2) Pulmonary embolus Status: Acute
[2016-09-17 15:38] VITALS: BP 95/56; PULSE 78; RESP 20; TEMP 99.4; O2SAT 100
--- NOTE | 2016-09-22 14:07 | VASCULAR ---
PROCEDURE: Fluoroscopy up to 1 hr. HISTORY: dvt COMPARISON: None TECHNIQUE: Standard protocol for this study/examination. FINDINGS: Total fluoroscopic time (continuous mode) utilized during the procedure: 242.1 seconds IMPRESSION: Less than 1 hr fluoroscopic time utilized during performance of the procedure.
== END 2016-09-17 17:00 | DRG 252 ==
LOC: H.ER 21:16 → H.ERHOLD 22:53 → H.TEL 09-12 01:31
PROVIDERS: ADMIT Internal Medicine; ATTEND Internal Medicine
PROC: 06H03DZ Insertion of Intraluminal Device into Inferior Vena Cava, Percutaneous Approach (ICD-10-PCS; principal; 2016-09-16)
DX: I82.411 Acute embolism and thrombosis of right femoral vein (principal); I26.92 Saddle embolus of pulmonary artery without acute cor pulmonale; Z68.43 Body mass index [BMI] 50.0-59.9, adult; N39.0 Urinary tract infection, site not specified; I82.433 Acute embolism and thrombosis of popliteal vein, bilateral; E66.01 Morbid (severe) obesity due to excess calories; Y83.8 Other surgical procedures as the cause of abnormal reaction of the patient, or of later complication, without mention of misadventure at the time of the procedure; D50.8 Other iron deficiency anemias; M06.9 Rheumatoid arthritis, unspecified; R73.03 Prediabetes; B96.20 Unspecified Escherichia coli [E. coli] as the cause of diseases classified elsewhere; B95.2 Enterococcus as the cause of diseases classified elsewhere